=== PATIENT | male | born 1960 | race Caucasian/White ===

== ENCOUNTER 2019-07-19 06:27 | Day surgery (SDC) | payer MEDICAID ==
[~2019-07-19 06:27] MED LIST: Midazolam 1 MG/ML 2 ML SDV ONE; Sodium Chloride 0.9% 10 ML Syringe FLUSH PRN; fentaNYL 100 MCG/2 ML SDV ONE
[2019-07-19] MEDS: Dextrose 5%-0.45% NaCl 1,000 ML IV SCH (07:13)
[2019-07-19] MEDS: fentaNYL 100 MCG/2 ML SDV IV ONE ×2 (07:32→07:33)
[2019-07-19] MEDS: Midazolam 1 MG/ML 2 ML SDV IV ONE ×6 (07:34→07:41)
--- NOTE | 2019-07-19 12:28 | OR ---
DATE: 07/19/2019 PROCEDURES: Total colonoscopy, NBI, and cold snare polypectomy. INSTRUMENT USED: PCF-H190DL Olympus video colonoscope. PREMEDICATIONS: Fentanyl 100 mcg intravenous, Versed 4 mg intravenous, nasal O2 cannula. The procedure was done under pulse oximetry, BP recording, and compliance monitor. INDICATION: The patient with previous multiple colonic tubular adenomas. Surveillance colonoscopic examination is done for detection of any polypoid lesions and removal, endoscopic hemostasis therapy if needed. DESCRIPTION OF PROCEDURE: Initial rectal exam was unremarkable. Rigid anoscopy was normal. The colonoscope was passed with ease. In the proximal rectum, 3 mm sized benign-appearing polyp was noted, NBI views were obtained, photographs were taken, cold snare polypectomy was done, the tissue was retrieved and sent for histopathology. Scattered diverticula were noted in the distal left colon along with deformity. The scope was passed with ease up to the ileocecal area. Photographs were taken of the normal-appearing cecum identified by landmarks of appendiceal orifice and double-bulged ileocecal folds. No bleeding was noted from any of the visualized areas at the commencement of the examination. No stricture. No vascular ectasia. No large isolated ulcerations seen. No evidence of diffuse inflammatory bowel disease in the form of friability, contact bleeding, or ulcerations. Probing the proximal sides of folds and flexures using adequate distention and clearing up the stool material, withdrawal of the scope was made, cecum to rectum time over 6 minutes. The bowel preparation was found to be adequate, [place] scale 2 in all the regions. No bleeding was noted from any of the visualized areas at the completion of examination. IMPRESSION: 1. Diverticulosis. 2. Diminutive rectal polyp. The patient tolerated the procedure well. [facility] /[id number]
== END 2019-07-19 10:00 | disposition home or self-care (01) ==
LOC: DL.ENDO 06:27
PROVIDERS: ATTEND Internal Medicine Gastroenterology
DX: Z12.11 Encounter for screening for malignant neoplasm of colon (principal); K57.30 Diverticulosis of large intestine without perforation or abscess without bleeding; D12.8 Benign neoplasm of rectum; M54.5 Low back pain; I10 Essential (primary) hypertension; Z86.010 Personal history of colon polyps
CPT/HCPCS: 45385; J2250; J3010; J7042

== ENCOUNTER 2020-06-09 13:05 | Emergency (ER) | payer MEDICAID ==
[2020-06-09] MEDS ORDERED: MVI, Adult with Vitamin K 10 ML, Folic Acid 1 MG, Thiamine 100 MG in Lactated Ringers 1... IV ONE ×4 (13:11)
[2020-06-09] MEDS ORDERED: Pantoprazole 40 MG Vial IVPUSH ONE (13:12)
[2020-06-09 13:53] LABS: PTT,PARTIAL THROMBOPLSTIN TIME 29.7 SEC (22.0-34.0)
[2020-06-09 14:01] LABS: CHLORIDE,CL 100 mmol/L (98-107); SODIUM,NA 136 mmol/L (136-145)
[2020-06-09] MEDS ORDERED: Lactulose Soln 10 GM/15 ML 30 ML UD Cup PO ONE (14:01)
[2020-06-09] MEDS ORDERED: Potassium Chloride 10 MEQ Tab.ER PO ONE (14:06)
[2020-06-09] MEDS ORDERED: Ondansetron 4 MG/2 ML SDV IV ONE (14:06)
[2020-06-09] MEDS ORDERED: Potassium Chloride 10 MEQ in Premix Bag 1 BAG IV ONE ×2 (14:09→14:11)
[2020-06-09] MEDS ORDERED: Lidocaine 1% 30 ML SDV INJECT ONE (14:10)
--- NOTE | 2020-06-09 14:40 | CR ---
PROCEDURE INFORMATION: Exam: XR Chest, 2 Views Exam date and time: 06/09/2020 2:15 PM Age: 59 years old Clinical indication: Tachypnea; Additional info: Sirs/sepsis unknwn source, tachycardia, wbc 16,500 TECHNIQUE: Imaging protocol: XR of the chest Views: 2 views. COMPARISON: No relevant prior studies available. FINDINGS: Lungs: There are no acute infiltrates. Pleural space: No pneumothorax or pleural effusion is identified Heart/Mediastinum: The mediastinal contour is normal. There is mild atherosclerotic calcification of the aorta. No cardiomegaly. Bones/joints: . The skeletal structures and soft tissues show no evidence of fracture or other acute processes. There is marginal spondylosis of the distal thoracic spine. IMPRESSION: No acute cardiac or pulmonary findings.
--- NOTE | 2020-06-09 14:51 | EDM.PDOC ---
Scribed by Maura Craft 06/09/20 1323 for Víctor Horvath MD ED HPI GENERAL MEDICAL PROBLEM - General Chief Complaint: Abdominal Pain Stated Complaint: AMBULANCE Time Seen by Provider: 06/09/20 13:07 Source of Information: Reports: Patient, EMS, EMS Notes Reviewed, RN, RN Notes Reviewed History Limitations: Reports: No Limitations - History of Present Illness INITIAL COMMENTS - FREE TEXT/NARRATIVE: Patient arrives by [facility] stating that he has felt weak weak for days. He is making very little urine. He has been yellow for several we eks or maybe months. He has had heavy daily alcohol use for many years. He has been eating some every day, but appetite is poor. Admits to nausea with occasional vomiting some mornings. Denies bloody or coffee ground emesis. Denies bloody, black, or tarry stools. Pt states his urine is orange color. He smokes, but less than a pack a day since not feeling well. Denies cough, shortness of breath, chest pain, abdominal pain, fever or chills. Onset: Gradual Duration: Chronic, Constant, Getting Worse Location: Reports: Abdomen, Generalized Quality: Reports: Other (Denies pain) Severity: Severe Improves with: Reports: None Worsens with: Reports: None Associated Symptoms: Reports: No Other Symptoms - Related Data Allergies Allergy/AdvReac Type Severity Reaction Status Date / Time tomato Allergy Rash Verified 06/09/20 13:19 Home Meds: Home Meds . [No Known Home Meds] 06/09/20 [History] Past Medical History HEENT History: Reports: Impaired Vision Cardiovascular History: Reports: Hypertension Respiratory History: Reports: None Gastrointestinal History: Reports: Chronic Constipation, Diverticulosis, Fatty Liver, Hepatitis (Alcoholic hepatitis, Hx possible Hep. C exposure), Jaundice, Other (See Below) Other Gastrointestinal History: states he has been constipated since fall Genitourinary History: Reports: None Musculoskeletal History: Reports: Back Pain, Chronic Neurological History: Reports: None Psychiatric History: Reports: Addiction (Alcohol) Endocrine/Metabolic History: Reports: Obesity/BMI 30+ Hematologic History: Reports: None Immunologic History: Reports: None Oncologic (Cancer) History: Reports: None Dermatologic History: Reports: None - Infectious Disease History Infectious Disease History: Reports: Measles - Past Surgical History Head Surgeries/Procedures: Reports: None HEENT Surgical History: Reports: None Cardiovascular Surgical History: Reports: None Respiratory Surgical History: Reports: None GI Surgical History: Reports: Colonoscopy Male Surgical History: Reports: None Endocrine Surgical History: Reports: None Neurological Surgical History: Reports: None Musculoskeletal Surgical History: Reports: Shoulder Surgery Oncologic Surgical History: Reports: None Dermatological Surgical History: Reports: Other (See Below) Social & Family History - Family History Family Medical History: Noncontributory - Tobacco Use Smoking Status *Q: Current Every Day Smoker Tobacco Use Within Last Twelve Months: Cigarettes Years of Tobacco use: 40 Packs/Tins Daily: 1 - Caffeine Use Caffeine Use: Reports: Coffee Other Caffeine Use: A LITTLE BIT, ONCE IN A WHILE A CUP OF COFFEE - Alcohol Use Alcohol Use History: Yes Days Per Week of Alcohol Use: 7 (Chronic heavy daily beer drinker for many years.) Alcohol Use Frequency: Daily - Recreational Drug Use Recreational Drug Use: No - Living Situation & Occupation Living situation: Reports: Single, with Family (with son) Occupation: Unemployed ED ROS GENERAL - Review of Systems Review Of Systems: Comprehensive ROS is negative, except as noted in HPI. ED EXAM, GENERAL - Physical Exam Exam: See Below Exam Limited By: No Limitations General Appearance: Alert, No Apparent Distress, Cachetic, Other (Chronicall ill, unkept appearance) Eye Exam: Bilateral Eye: EOMI (Scleral icterus), PERRL Ears: Hearing Grossly Normal Nose: Normal Inspection, Normal Mucosa, No Blood Throat/Mouth: Normal Voice, No Airway Compromise, Other (Dry oral mucosa) Head: Atraumatic, Normocephalic Neck: Normal Inspection, Non-Tender, Full Range of Motion. No: Lymphadenopathy (L), Lymphadenopathy (R) Respiratory/Chest: No Respiratory Distress, Lungs Clear, No Accessory Muscle U se, Chest Non-Tender, Decreased Breath Sounds. No: Crackles, Rales, Rhonchi, Wheezing Cardiovascular: Regular Rate, Rhythm, Tachycardia GI/Abdominal: Normal Bowel Sounds, Soft, Non-Tender, No Distention, Pelvis Stable, Hepatomegaly. No: No Abnormal Bruit, Guarding, Rigid, Rebound (Male) Exam: Deferred Rectal (Males) Exam: Deferred Back Exam: Full Range of Motion. No: Vertebral Tenderness Extremities: Normal Capillary Refill, Pedal Edema (equal B/L non-pitting pedal edema). No: Joint Swelling Neurological: Alert, Oriented, No Motor/Sensory Deficits, Other (Generalized weakness) Psychiatric: Depressed Mood, Flat Affect Skin Exam: Warm, Dry, Jaundice, Rash (Dry flaking, crusty excoriated patches to scalp, neck, upper extremities) Course - Vital Signs Last Recorded V/S: Last Vital Signs Temp 98.4 F 06/09/20 13:15 Pulse 111 H 06/09/20 13:15 Resp 16 06/09/20 13:15 BP 113/56 L 06/09/20 13:15 Pulse Ox 98 06/09/20 13:15 - Orders/Labs/Meds Orders: Active Orders 24 hr Category Date Time Status CULTURE BLOOD [BC] Stat Lab 06/09/20 13:49 Ordered DRUG SCREEN URINE BIORAD [URCHEM] Stat Lab 06/09/20 13:10 Ordered UA RFX PANKAJ AND CULT IF INDIC [URIN] Stat Lab 06/09/20 13:10 Ordered MVI, Adult with Vitamin K [Infuvite Adult] 10 ml Med 06/09/20 13:11 Active Folic Acid 1 mg Thiamine [Vitamin B-1] 100 mg Lactated Ringers [Ringers, Lactated] 1,000 ml IV ONETIME Potassium Chloride [KCl 10 MEQ in Water 100 ML] 10 meq Med 06/09/20 14:09 Active Premix Bag 1 bag IV ONETIME Potassium Chloride [KCl 10 MEQ in Water 100 ML] 10 meq Med 06/09/20 14:11 Active Premix Bag 1 bag IV ONETIME Medication Orders Multivitamins/Minerals 10 ml/Folic Acid 1 mg/ Thiamine HCl 100 mg/ Lactated Ringer's 1,011.2 mls @ 500 mls/hr IV ONETIME ONE Stop: 06/09/20 15:12 Last Admin: 06/09/20 13:31 Dose: 500 mls/hr Documented by: GUILLERMINA Potassium Chloride 10 meq/ (Premix) 100 mls @ 100 mls/hr IV ONETIME ONE Stop: 06/09/20 15:08 Last Admin: 06/09/20 14:20 Dose: 100 mls/hr Documented by: GUILLERMINA Potassium Chloride 10 meq/ (Premix) 100 mls @ 100 mls/hr IV ONETIME ONE Stop: 06/09/20 15:10 Labs: Laboratory Tests 06/09/20 06/09/20 06/09/20 Range/Units 13:23 13:23 13:23 WBC 16.5 H (5.0-10.0) 10^3/uL RBC 2.67 L (4.6-6.2) 10^6/uL Hgb 10.0 L (14.0-18.0) g/dL Hct 27.2 L (40.0-54.0) % MCV 101.9 H (80-100) fL MCH 37.5 H (27.0-34.0) pg MCHC 36.8 H (33.0-35.0) g/dL Plt Count 257 (150-450) 10^3/uL Neut % (Auto) 72.8 (42.2-75.2) % Lymph % (Auto) 10.7 L (20.5-50.1) % [place] % (Auto) 12.2 H (2-8) % Eos % (Auto) 3.6 H (1.0-3.0) % Baso % (Auto) 0.7 (0.0-1.0) % Add Manual Diff Yes Neutrophils % (Manual) 66 (42-75) % Band Neutrophils % 8 % Lymphocytes % (Manual) 13 L (20-50) % Monocytes % (Manual) 6 (2-8) % Eosinophils % (Manual) 4 H (1-3) % Basophils % (Manual) 1 Metamyelocytes % 1 Myelocytes % 1 Target Cells 1+ slight PT 14.6 H (9.0-12.0) SEC INR 1.6 H (0.9-1.2) APTT 29.7 (22.0-34.0) SEC Sodium 136 (136-145) mmol/L Potassium 2.0 L* (3.5-5.1) mmol/L Chloride 100 (98-107) mmol/L Carbon Dioxide 21 (21-32) mmol/L Anion Gap 17.0 H (7-13) mEq/L BUN 4 L (7-18) mg/dL Creatinine 0.68 L (0.70-1.30) mg/dL Est Cr Clr Drug Dosing TNP Estimated GFR (MDRD) > 60 BUN/Creatinine Ratio 5.9 (No establ ref range) Glucose 151 H (74-99) mg/dL Lactic Acid (0.4-2.0) mmol/L Calcium 7.9 L (8.5-10.1) mg/dL Total Bilirubin 21.8 H (0.2-1.0) mg/dL AST 95 H (15-37) U/L ALT 27 (16-63) U/L Alkaline Phosphatase 466 H (46-116) U/L Ammonia (11-32) umol/L Total Protein 7.2 (6.4-8.2) g/dL Albumin 1.6 L (3.4-5.0) g/dL Globulin 5.6 Albumin/Globulin Ratio 0.29 Amylase 39 (25-115) U/L Lipase 274 (73-393) U/L Ethyl Alcohol < 3 (0) mg/dL 06/09/20 06/09/20 Range/Units 13:23 13:23 WBC (5.0-10.0) 10^3/uL RBC (4.6-6.2) 10^6/uL Hgb (14.0-18.0) g/dL Hct (40.0-54.0) % MCV (80-100) fL MCH (27.0-34.0) pg MCHC (33.0-35.0) g/dL Plt Count (150-450) 10^3/uL Neut % (Auto) (42.2-75.2) % Lymph % (Auto) (20.5-50.1) % [place] % (Auto) (2-8) % Eos % (Auto) (1.0-3.0) % Baso % (Auto) (0.0-1.0) % Add Manual Diff Neutrophils % (Manual) (42-75) % Band Neutrophils % % Lymphocytes % (Manual) (20-50) % Monocytes % (Manual) (2-8) % Eosinophils % (Manual) (1-3) % Basophils % (Manual) Metamyelocytes % Myelocytes % Target Cells PT (9.0-12.0) SEC INR (0.9-1.2) APTT (22.0-34.0) SEC Sodium (136-145) mmol/L Potassium (3.5-5.1) mmol/L Chloride (98-107) mmol/L Carbon Dioxide (21-32) mmol/L Anion Gap (7-13) mEq/L BUN (7-18) mg/dL Creatinine (0.70-1.30) mg/dL Est Cr Clr Drug Dosing Estimated GFR (MDRD) BUN/Creatinine Ratio (No establ ref range) Glucose (74-99) mg/dL Lactic Acid 2.6 H* (0.4-2.0) mmol/L Calcium (8.5-10.1) mg/dL Total Bilirubin (0.2-1.0) mg/dL AST (15-37) U/L ALT (16-63) U/L Alkaline Phosphatase (46-116) U/L Ammonia 103 H (11-32) umol/L Total Protein (6.4-8.2) g/dL Albumin (3.4-5.0) g/dL Globulin Albumin/Globulin Ratio Amylase (25-115) U/L Lipase (73-393) U/L Ethyl Alcohol (0) mg/dL Meds: Medications Generic Name Dose Route Start Last Admin Trade Name Freq PRN Reason Stop Dose Admin Multivitamins/Minerals 10 ml/ 1,011.2 mls @ 500 mls/hr 06/09/20 13:11 0 06/09/20 13:31 Folic Acid 1 mg/ Thiamine HCl IV 06/09/20 15:12 500 mls/hr 100 mg/ Lactated Ringer's ONETIME ONE Administration Potassium Chloride 10 meq/ 100 mls @ 100 mls/hr 06/09/20 14:09 06/09/20 14:20 Premix IV 06/09/20 15:08 100 mls/hr ONETIME ONE Administration Potassium Chloride 10 meq/ 100 mls @ 100 mls/hr 06/09/20 14:11 Premix IV 06/09/20 15:10 ONETIME ONE Discontinued Medications Generic Name Dose Route Start Last Admin Trade Name Freq PRN Reason Stop Dose Admin Lactulose 20 gm 06/09/20 14:01 06/09/20 14:07 Cephulac PO 06/09/20 14:02 20 gm ONETIME ONE Administration Lidocaine HCl 30 ml 06/09/20 14:10 06/09/20 14:20 Xylocaine-Mpf 1% INJECT 06/09/20 14:11 30 ml ONETIME ONE Administration Ondansetron HCl 4 mg 06/09/20 14:06 06/09/20 14:20 Zofran IV 06/09/20 14:07 4 mg ONETIME ONE Administration Pantoprazole Sodium 40 mg 06/09/20 13:12 06/09/20 13:31 Protonix Iv IVPUSH 06/09/20 13:13 40 mg ONETIME ONE Administration Potassium Chloride 40 meq 06/09/20 14:06 06/09/20 14:20 Klor-Con 10 PO 06/09/20 14:07 40 meq ONETIME ONE Administration - Radiology Interpretation Free Text/Narrative:: [facility] [place] [facility] Final Radiology Report Call: [phone] assistance Online chat: [email or web address] Name: RIZWAN ACKERMAN Age: 59Years M Date: 06/09/2020 SSN: -- : [id number] Study: CR CHEST 2V Requesting Physician: VÍCTOR HORVATH Images: 2 Addl Studies: Provided Clinical History: SIRS/Sepsis unknwn source, tachycardia, WBC 16,500 Contrast: Contrast Medium: Contrast Amount: Contrast Method: CONFIDENTIALITY STATEMENT This report is intended only for use by the referring physician, and only in accordance with law. If you received this in error, call [phone]. Page 1 of 1 PROCEDURE INFORMATION: Exam: XR Chest, 2 Views Exam date and time: 06/09/2020 2:15 PM Age: 59 years old Clinical indication: Tachypnea; Additional info: Sirs/sepsis unknwn source, tachycardia, wbc 16,500 TECHNIQUE: Imaging protocol: XR of the chest Views: 2 views. COMPARISON: No relevant prior studies available. FINDINGS: Lungs: There are no acute infiltrates. Pleural space: No pneumothorax or pleural effusion is identified Heart/Mediastinum: The mediastinal contour is normal. There is mild atherosclerotic calcification of the aorta. No cardiomegaly. Bones/joints: . The skeletal structures and soft tissues show no evidence of fracture or other acute processes. There is marginal spondylosis of the distal thoracic spine. IMPRESSION: No acute cardiac or pulmonary findings. Thank you for allowing us to participate in the care of your patient. Dictated and Authenticated by: Brooke Jones MD 06/09/2020 2:40 PM Central Time ([place] & [place]) Departure - Departure Time of Disposition: 14:46 Disposition: DC/Tfer to Acute Hospital 02 Condition: Serious Clinical Impression: Hypokalemia, Hyperbilirubinemia, Jaundice, acholuric, Chronic alcohol abuse, Tobacco dependence due to cigarettes Alcoholic cirrhosis of liver Qualifiers: Ascites presence: unspecified Qualified Code(s): K70.30 - Alcoholic cirrhosis of liver without ascites - Discharge Information *PRESCRIPTION DRUG MONITORING PROGRAM REVIEWED*: Not Applicable *COPY OF PRESCRIPTION DRUG MONITORING REPORT IN PATIENT ANTONIO: Not Applicable Forms: ED Department Discharge, Interfacility Transfer EMTALA Sepsis Event Note (ED) - Focused Exam Vital Signs: Vital Signs Temp Pulse Resp BP Pulse Ox 06/09/20 13:15 98.4 F 111 H 16 113/56 L 98 - My Orders Last 24 Hours: My Active Orders 06/09/20 13:10 DRUG SCREEN URINE BIORAD [URCHEM] Stat UA RFX PANKAJ AND CULT IF INDIC [URIN] Stat 06/09/20 13:11 MVI, Adult with Vitamin K [Infuvite Adult] 10 ml Folic Acid 1 mg Thiamine [Vitamin B-1] 100 mg Lactated Ringers [Ringers, Lactated] 1,000 ml IV ONETIME 06/09/20 13:49 CULTURE BLOOD [BC] Stat 06/09/20 14:09 Potassium Chloride [KCl 10 MEQ in Water 100 ML] 10 meq Premix Bag 1 bag IV ONETIME 06/09/20 14:11 Potassium Chloride [KCl 10 MEQ in Water 100 ML] 10 meq Premix Bag 1 bag IV ONETIME - Assessment/Plan Last 24 Hours: My Active Orders 06/09/20 13:10 DRUG SCREEN URINE BIORAD [URCHEM] Stat UA RFX PANKAJ AND CULT IF INDIC [URIN] Stat 06/09/20 13:11 MVI, Adult with Vitamin K [Infuvite Adult] 10 ml Folic Acid 1 mg Thiamine [Vitamin B-1] 100 mg Lactated Ringers [Ringers, Lactated] 1,000 ml IV ONETIME 06/09/20 13:49 CULTURE BLOOD [BC] Stat 06/09/20 14:09 Potassium Chloride [KCl 10 MEQ in Water 100 ML] 10 meq Premix Bag 1 bag IV ONETIME 06/09/20 14:11 Potassium Chloride [KCl 10 MEQ in Water 100 ML] 10 meq Premix Bag 1 bag IV ONETIME I have read and agree with the documentation that has been completed regarding this visit. By signing this record, I attest that the documentation was completed in my physical presence and is an accurate record of the encounter.
== END 2020-06-09 16:20 ==
LOC: DL.ED 13:05
DX: K70.30 Alcoholic cirrhosis of liver without ascites (principal); E87.6 Hypokalemia; D58.0 Hereditary spherocytosis; F10.10 Alcohol abuse, uncomplicated; F17.210 Nicotine dependence, cigarettes, uncomplicated; E80.6 Other disorders of bilirubin metabolism; I10 Essential (primary) hypertension; E66.9 Obesity, unspecified; Z91.018 Allergy to other foods
CPT/HCPCS: 36415; 71046; 80053; 80305; 80307; 81001; 82140; 82150; 83605; 83615; 83690; 83735; 85025; 85610; 85730; 87040; 96365; 96366; 96368; 96375; 99285; A9270; C9113; J2001; J2405; J3411; J3480; J7120; J3490

== ENCOUNTER 2020-08-23 11:58 | Emergency (ER) | payer MEDICAID ==
[2020-08-23] MEDS ORDERED: Sulfamethoxazole/Trimethoprim 800-160 MG Tab PO ONE ×3 (11:59→13:34)
--- NOTE | 2020-08-23 12:35 | EDM.PDOC ---
ED HPI GENERAL MEDICAL PROBLEM - General Chief Complaint: Skin Complaint Stated Complaint: AMBULANCE Time Seen by Provider: 08/23/20 12:15 Source of Information: Reports: Patient, EMS, EMS Notes Reviewed, RN, RN Notes Reviewed History Limitations: Reports: No Limitations - History of Present Illness INITIAL COMMENTS - FREE TEXT/NARRATIVE: Patient presents to the ED via EMS with complaints of worsening rash to face, scalp, ears, and neck. The patient is unable to state when the rash initially began but notes it "comes and goes" for some time; he thinks months. Recently, he has noted the rash has progressively worsened to the point that he presented to the clinic to visit with his primary care provider about it. He states he saw his PCP, Dr. Lim, last week (he is unsure of the date) who prescribed him hydrocortisone cream. He states the rash has worsened in severity since the initiation of the cream. He voices pain and itching to the areas of rash. He states he has experienced a headache, sore throat, and a TMax of 100.6 with the rash. He denies shaking chills, vision changes, cough, sinus pressure/drainage/pain, chest pain, shortness of breath, palpitations, or changes to his bowel/bladder patterns. He denies any changes to his medication but notes he started on "a few water pills and blood pressure meds" a few months ago. He denies and changes to soap, lotions, or detergents. He does attest to smoking 1/2 to 3/4 pack of cigarettes per day. He states he is a former drinker, but has not drank alcohol recently. He denies recreational drug use. - Related Data Allergies Allergy/AdvReac Type Severity Reaction Status Date / Time tomato Allergy Rash Verified 08/23/20 12:08 Home Meds: Home Meds . [No Known Home Meds] 06/09/20 [History] Past Medical History HEENT History: Reports: Impaired Vision Cardiovascular History: Reports: Hypertension Respiratory History: Reports: None Gastrointestinal History: Reports: Chronic Constipation, Diverticulosis, Fatty Liver, Hepatitis, Jaundice Other Gastrointestinal History: states he has been constipated since fall Genitourinary History: Reports: None Musculoskeletal History: Reports: Back Pain, Chronic Neurological History: Reports: None Psychiatric History: Reports: Addiction Endocrine/Metabolic History: Reports: Obesity/BMI 30+ Hematologic History: Reports: None Immunologic History: Reports: Other (See Below) Other Immunologic History: Hepatits Oncologic (Cancer) History: Reports: None Dermatologic History: Reports: None - Infectious Disease History Infectious Disease History: Reports: Measles - Past Surgical History Head Surgeries/Procedures: Reports: None HEENT Surgical History: Reports: None Cardiovascular Surgical History: Reports: None Respiratory Surgical History: Reports: None GI Surgical History: Reports: Colonoscopy Male Surgical History: Reports: None Endocrine Surgical History: Reports: None Neurological Surgical History: Reports: None Musculoskeletal Surgical History: Reports: Shoulder Surgery Oncologic Surgical History: Reports: None Dermatological Surgical History: Reports: Other (See Below) Social & Family History - Family History Family Medical History: No Pertinent Family History - Tobacco Use Tobacco Use Status *Q: Current Every Day Tobacco User Years of Tobacco use: 35 Packs/Tins Daily: 1 - Caffeine Use Caffeine Use: Reports: Coffee Other Caffeine Use: A LITTLE BIT, ONCE IN A WHILE A CUP OF COFFEE - Living Situation & Occupation Living situation: Reports: Single, with Family (with son) Occupation: Unemployed ED ROS GENERAL - Review of Systems Review Of Systems: Comprehensive ROS is negative, except as noted in HPI. ED EXAM, SKIN/RASH Exam: See Below Exam Limited By: No Limitations General Appearance: Alert, WD/WN, No Apparent Distress Eye Exam: Bilateral Eye: EOMI, PERRL, Other (Scleral icterus) Ears: Normal External Exam, Normal Canal, Hearing Grossly Normal, Normal TMs Nose: Normal Inspection, Normal Mucosa, No Blood. No: Nasal Tenderness, Nasal Swelling, Nasal Drainage Throat/Mouth: Normal Lips, Normal Teeth, Normal Gums, Inflammation (Posterior oropharyngeal erythema). No: Normal Oropharynx (Dry mucous membranes) Head: Atraumatic, Normocephalic, Other (Dry, crusty macular erythematous rash to face, scalp, and bilateral ears) Neck: Normal Inspection, Supple, Non-Tender, Full Range of Motion, Other (Dry, crusty macular erythematous rash to posterior neck). No: Lymphadenopathy (L), Lymphadenopathy (R) Respiratory/Chest: No Accessory Muscle Use, Chest Non-Tender, Decreased Breath Sounds Cardiovascular: Normal Peripheral Pulses, Regular Rate, Rhythm, No Edema, No Gallop, No JVD, No Murmur, No Rub Peripheral Pulses: 2+: Radial (L), Radial (R) Back Exam: Normal Inspection, Full Range of Motion. No: CVA Tenderness (L), CVA Tenderness (R) Extremities: Normal Inspection, Normal Range of Motion, Non-Tender, No Pedal Edema, Normal Capillary Refill Neurological: Alert, Oriented, CN II-XII Intact, Normal Cognition, No Motor/Sensory Deficits Psychiatric: Depressed Mood, Flat Affect Skin: Erythema, Excoriations, Increased Warmth, Rash. No: Ecchymosis, Mottled, Pallor, Petechiae Location, Skin: Head, Face, Neck (Posterior neck), Back (Upper, medial back) Characteristics: Macular, Patchy, Erythematous Associated features: Warmth, Tenderness, Inflammation, Crusting, Weeping, Rough Course - Vital Signs Last Recorded V/S: Last Vital Signs Temp 100 F 08/23/20 11:58 Pulse 109 H 08/23/20 11:58 Resp 18 08/23/20 11:58 BP 128/70 08/23/20 11:58 Pulse Ox 98 08/23/20 11:58 - Orders/Labs/Meds Orders: Active Orders 24 hr Category Date Time Status CULTURE BLOOD [BC] Stat Lab 08/23/20 12:29 Received Sulfamethoxazole/Trimethoprim [Septra DS] Med 08/23/20 13:34 Once 1 tab PO ONETIME ONE Sulfamethoxazole/Trimethoprim [Septra DS] Med 08/23/20 13:34 Once 1 tab PO ONETIME ONE Medication Orders Trimethoprim/Sulfamethoxazole (Septra Ds) 1 tab PO ONETIME ONE Stop: 08/23/20 13:35 Trimethoprim/Sulfamethoxazole (Septra Ds) 1 tab PO ONETIME ONE Stop: 08/23/20 13:35 Labs: Laboratory Tests 08/23/20 08/23/20 08/23/20 Range/Units 12:29 12:29 12:29 WBC 12.1 H (5.0-10.0) 10^3/uL RBC 4.01 L (4.6-6.2) 10^6/uL Hgb 14.2 D (14.0-18.0) g/dL Hct 41.3 (40.0-54.0) % MCV 103.0 H (80-100) fL MCH 35.4 H (27.0-34.0) pg MCHC 34.4 (33.0-35.0) g/dL Plt Count 154 D (150-450) 10^3/uL Neut % (Auto) 76.1 H (42.2-75.2) % Lymph % (Auto) 10.1 L (20.5-50.1) % [place] % (Auto) 12.0 H (2-8) % Eos % (Auto) 1.3 (1.0-3.0) % Baso % (Auto) 0.5 (0.0-1.0) % Sodium 132 L (136-145) mmol/L Potassium 3.6 D (3.5-5.1) mmol/L Chloride 95 L (98-107) mmol/L Carbon Dioxide 23 (21-32) mmol/L Anion Gap 17.6 H (7-13) mEq/L BUN 7 (7-18) mg/dL Creatinine 0.78 (0.70-1.30) mg/dL Est Cr Clr Drug Dosing 103.23 mL/min Estimated GFR (MDRD) > 60 BUN/Creatinine Ratio 9.0 (No establ ref range) Glucose 202 H (74-99) mg/dL Lactic Acid 2.0 (0.4-2.0) mmol/L Calcium 8.7 (8.5-10.1) mg/dL Total Bilirubin 3.0 H (0.2-1.0) mg/dL AST 51 H (15-37) U/L ALT 37 (16-63) U/L Alkaline Phosphatase 213 H (46-116) U/L Total Protein 8.4 H (6.4-8.2) g/dL Albumin 3.3 L (3.4-5.0) g/dL Globulin 5.1 Albumin/Globulin Ratio 0.65 Urine Color (YELLOW) Urine Appearance (CLEAR) Urine pH (5.0-9.0) Ur Specific [place] (1.005-1.030) Urine Protein (NEGATIVE) Urine Glucose (UA) (NEGATIVE) Urine Ketones (NEGATIVE) Urine Occult Blood (NEGATIVE) Urine Nitrite (NEGATIVE) Urine Bilirubin (NEGATIVE) Urine Urobilinogen (0.2-1.0) mg/dL Ur Leukocyte Esterase (NEGATIVE) Urine RBC /HPF Urine WBC (0-5/HPF) /HPF Ur Epithelial Cells (NOT SEEN) /HPF Urine Bacteria (0-FEW/HPF) /HPF Urine Mucus (NOT SEEN) /LPF Urine Opiates Screen (NEGATIVE) Ur Oxycodone Screen (NEGATIVE) Urine Methadone Screen (NEGATIVE) Ur Barbiturates Screen (NEGATIVE) U Tricyclic Antidepress (NEGATIVE) Ur Phencyclidine Scrn (NEGATIVE) Ur Amphetamine Screen (NEGATIVE) U Methamphetamines Scrn (NEGATIVE) Urine MDMA Screen (NEGATIVE) U Benzodiazepines Scrn (NEGATIVE) Urine Cocaine Screen (NEGATIVE) U Marijuana (THC) Screen (NEGATIVE) Ethyl Alcohol 20 (0) mg/dL 08/23/20 08/23/20 Range/Units 12:38 12:38 WBC (5.0-10.0) 10^3/uL RBC (4.6-6.2) 10^6/uL Hgb (14.0-18.0) g/dL Hct (40.0-54.0) % MCV (80-100) fL MCH (27.0-34.0) pg MCHC (33.0-35.0) g/dL Plt Count (150-450) 10^3/uL Neut % (Auto) (42.2-75.2) % Lymph % (Auto) (20.5-50.1) % [place] % (Auto) (2-8) % Eos % (Auto) (1.0-3.0) % Baso % (Auto) (0.0-1.0) % Sodium (136-145) mmol/L Potassium (3.5-5.1) mmol/L Chloride (98-107) mmol/L Carbon Dioxide (21-32) mmol/L Anion Gap (7-13) mEq/L BUN (7-18) mg/dL Creatinine (0.70-1.30) mg/dL Est Cr Clr Drug Dosing mL/min Estimated GFR (MDRD) BUN/Creatinine Ratio (No establ ref range) Glucose (74-99) mg/dL Lactic Acid (0.4-2.0) mmol/L Calcium (8.5-10.1) mg/dL Total Bilirubin (0.2-1.0) mg/dL AST (15-37) U/L ALT (16-63) U/L Alkaline Phosphatase (46-116) U/L Total Protein (6.4-8.2) g/dL Albumin (3.4-5.0) g/dL Globulin Albumin/Globulin Ratio Urine Color Yellow (YELLOW) Urine Appearance Clear (CLEAR) Urine pH 5.5 (5.0-9.0) Ur Specific [place] 1.020 (1.005-1.030) Urine Protein Negative (NEGATIVE) Urine Glucose (UA) Negative (NEGATIVE) Urine Ketones Negative (NEGATIVE) Urine Occult Blood Trace-lysed H (NEGATIVE) Urine Nitrite Negative (NEGATIVE) Urine Bilirubin Negative (NEGATIVE) Urine Urobilinogen 1.0 (0.2-1.0) mg/dL Ur Leukocyte Esterase Negative (NEGATIVE) Urine RBC 0-5 /HPF Urine WBC 0-5 (0-5/HPF) /HPF Ur Epithelial Cells Rare (NOT SEEN) /HPF Urine Bacteria Few (0-FEW/HPF) /HPF Urine Mucus Few H (NOT SEEN) /LPF Urine Opiates Screen Negative (NEGATIVE) Ur Oxycodone Screen Negative (NEGATIVE) Urine Methadone Screen Negative (NEGATIVE) Ur Barbiturates Screen Negative (NEGATIVE) U Tricyclic Antidepress Negative (NEGATIVE) Ur Phencyclidine Scrn Negative (NEGATIVE) Ur Amphetamine Screen Negative (NEGATIVE) U Methamphetamines Scrn Negative (NEGATIVE) Urine MDMA Screen Negative (NEGATIVE) U Benzodiazepines Scrn Negative (NEGATIVE) Urine Cocaine Screen Negative (NEGATIVE) U Marijuana (THC) Screen Positive H (NEGATIVE) Ethyl Alcohol (0) mg/dL Meds: Medications Generic Name Dose Route Start Last Admin Trade Name Freq PRN Reason Stop Dose Admin Trimethoprim/Sulfamethoxazole 1 tab 08/23/20 13:34 Septra Ds PO 08/23/20 13:35 ONETIME ONE Trimethoprim/Sulfamethoxazole 1 tab 08/23/20 13:34 Septra Ds PO 08/23/20 13:35 ONETIME ONE Discontinued Medications Generic Name Dose Route Start Last Admin Trade Name Freq PRN Reason Stop Dose Admin Trimethoprim/Sulfamethoxazole Confirm 08/23/20 13:23 Septra Ds Administered 08/23/20 13:24 Dose 2 tab .ROUTE .STK-MED ONE - Re-Assessments/Exams Free Text/Narrative Re-Assessment/Exam: 08/23/20 Discussed manifestation of psoriasis with patient, including plaques and flaking. Given slight elevation in temperature and slight leukocytosis with left shift, will treat for cellulitis superimposed on psoriasis. Instructed the patient to continue on hydrocortisone cream as previously prescribed tonight, but will attempt a higher-potency cream Fluocinonide to his ears and scalp; patient instructed not to use this cream on his face. Will treat cellulitis empirically with Bactrim DS. Patient instructed to refrain from alcohol and to drink plenty of water to stay hydrated. Instructed patient to follow up with PCP in seven days or with any fever, shaking chills, or worsening rash. Departure - Departure Time of Disposition: 13:28 Disposition: Home, Self-Care 01 Condition: Good Clinical Impression: Psoriasis of scalp, Psoriasis Cellulitis Qualifiers: Site of cellulitis: head Qualified Code(s): L03.811 - Cellulitis of head [any part, except face] - Discharge Information *PRESCRIPTION DRUG MONITORING PROGRAM REVIEWED*: Not Applicable *COPY OF PRESCRIPTION DRUG MONITORING REPORT IN PATIENT ANTONIO: Not Applicable Instructions: Psoriasis, Cellulitis, Adult, [id number] Forms: ED Department Discharge Additional Instructions: Rx: Fluocinonide 0.1% cream Rx: Bactrim DS Continue to apply previously prescribed hydrocortisone cream to affected areas until you can fill the Fluocinonide cream at your pharmacy. Follow up with your primary care provider in 7 days, or should you experience fever, shaking chills, or worsening rash. Drink a lot of water to stay hydrated and help your skin heal. Refrain from drinking alcohol, as alcohol may worsen the severity of your rash. Sepsis Event Note (ED) - Evaluation Sepsis Screening Result: No Definite Risk - Focused Exam Vital Signs: Vital Signs Temp Pulse Resp BP Pulse Ox 08/23/20 11:58 100 F 109 H 18 128/70 98 - My Orders Last 24 Hours: My Active Orders 08/23/20 12:29 CULTURE BLOOD [BC] Stat 08/23/20 13:34 Sulfamethoxazole/Trimethoprim [Septra DS] 1 tab PO ONETIME ONE Sulfamethoxazole/Trimethoprim [Septra DS] 1 tab PO ONETIME ONE - Assessment/Plan Last 24 Hours: My Active Orders 08/23/20 12:29 CULTURE BLOOD [BC] Stat 08/23/20 13:34 Sulfamethoxazole/Trimethoprim [Septra DS] 1 tab PO ONETIME ONE Sulfamethoxazole/Trimethoprim [Septra DS] 1 tab PO ONETIME ONE
[2020-08-23 12:57] LABS: ANION GAP 17.6 mEq/L (7-13); CHLORIDE,CL 95 mmol/L (98-107); SODIUM,NA 132 mmol/L (136-145)
[2020-08-23] MEDS ORDERED: Sulfamethoxazole/Trimethoprim 800-160 MG Tab ONE (13:23)
== END 2020-08-23 13:48 | disposition home or self-care (01) ==
LOC: DL.ED 11:58
DX: L40.9 Psoriasis, unspecified (principal); L03.811 Cellulitis of head [any part, except face]; I10 Essential (primary) hypertension; E66.9 Obesity, unspecified; Z68.25 Body mass index [BMI] 25.0-25.9, adult; Z91.018 Allergy to other foods; F17.210 Nicotine dependence, cigarettes, uncomplicated
CPT/HCPCS: 36415; 80053; 80305; 80307; 81001; 83605; 85025; 87040; 99283; A9270

== ENCOUNTER 2020-08-31 18:55 | Emergency (ER) | payer MEDICAID ==
--- NOTE | 2020-08-31 19:20 | EDM.PDOC ---
ED HPI GENERAL MEDICAL PROBLEM - General Chief Complaint: Upper Extremity Injury/Pain Stated Complaint: AMBULANCE Time Seen by Provider: 08/31/20 19:20 Source of Information: Reports: Patient, RN, RN Notes Reviewed History Limitations: Reports: No Limitations, Intoxication - History of Present Illness INITIAL COMMENTS - FREE TEXT/NARRATIVE: Patient presents to ER per [facility] with complaint of right arm pain/weakness. Patient states he had a fall down about 5 steps last evening, had some pain at that time. States today the pain has worsened, feels the weakness is worse, states he cannot do anything with the right arm. Patient is moving the right arm about appropriately, decreased strength in squeeze to the right hand. Complains of the pain up into the shoulder down to the hand. States he has had some numbness in the right hand that he is been doctoring for and is following up with. Patient also complains of pain in the right lateral rib area, as well as the left hip. Patient admits to drinking alcohol today, as well as yesterday. Patient denies hitting his head or getting knocked out with the fall. Onset: Gradual Duration: Constant Location: Reports: Upper Extremity, Right Quality: Reports: Ache Severity: Mild Improves with: Reports: None Worsens with: Reports: None Associated Symptoms: Reports: No Other Symptoms Right Arm Pain Score (Numeric/FACES): 7 Right Shoulder Pain Score (Numeric/FACES): 5 Right Back Pain Score (Numeric/FACES): 5 - Related Data Allergies Allergy/AdvReac Type Severity Reaction Status Date / Time tomato Allergy Rash Verified 08/31/20 19:13 Home Meds: Home Meds . [No Known Home Meds] 06/09/20 [History] Past Medical History HEENT History: Reports: Impaired Vision Cardiovascular History: Reports: Hypertension Respiratory History: Reports: None Gastrointestinal History: Reports: Chronic Constipation, Diverticulosis, Fatty Liver, Hepatitis, Jaundice, Other (See Below) Other Gastrointestinal History: states he has been constipated since fall Genitourinary History: Reports: None Musculoskeletal History: Reports: Back Pain, Chronic Neurological History: Reports: None Psychiatric History: Reports: Addiction Endocrine/Metabolic History: Reports: Obesity/BMI 30+ Hematologic History: Reports: None Immunologic History: Reports: None Other Immunologic History: Hepatits Oncologic (Cancer) History: Reports: None Dermatologic History: Reports: None - Infectious Disease History Infectious Disease History: Reports: Measles - Past Surgical History Head Surgeries/Procedures: Reports: None HEENT Surgical History: Reports: None Cardiovascular Surgical History: Reports: None Respiratory Surgical History: Reports: None GI Surgical History: Reports: Colonoscopy Male Surgical History: Reports: None Endocrine Surgical History: Reports: None Neurological Surgical History: Reports: None Musculoskeletal Surgical History: Reports: Shoulder Surgery Oncologic Surgical History: Reports: None Dermatological Surgical History: Reports: Other (See Below) Social & Family History - Family History Family Medical History: No Pertinent Family History - Tobacco Use Tobacco Use Status *Q: Current Every Day Tobacco User Years of Tobacco use: 45 Packs/Tins Daily: 1 - Caffeine Use Caffeine Use: Reports: Coffee Other Caffeine Use: A LITTLE BIT, ONCE IN A WHILE A CUP OF COFFEE - Alcohol Use Date of Last Drink: 08/31/20 - Recreational Drug Use Recreational Drug Use: Yes Drug Use in Last 12 Months: No - Living Situation & Occupation Living situation: Reports: Single, with Family (with son) Occupation: Unemployed Review of Systems - Review of Systems Review Of Systems: Comprehensive ROS is negative, except as noted in HPI. ED EXAM, GENERAL - Physical Exam Exam: See Below Exam Limited By: Intoxication General Appearance: Alert, WD/WN, No Apparent Distress Eye Exam: Bilateral Eye: EOMI, Normal Inspection Ears: Normal External Exam, Hearing Grossly Normal Nose: Normal Inspection Throat/Mouth: Normal Inspection, Normal Voice, No Airway Compromise Head: Atraumatic, Normocephalic Neck: Normal Inspection, Supple, Non-Tender, Full Range of Motion Respiratory/Chest: No Respiratory Distress, Decreased Breath Sounds, Crackles (bases bilaterally) Cardiovascular: Normal Peripheral Pulses, Regular Rate, Rhythm, No Edema, No Gallop, No JVD, No Murmur, No Rub Peripheral Pulses: 2+: Radial (L), Radial (R) GI/Abdominal: Normal Bowel Sounds, Soft, Non-Tender, No Organomegaly, No Distention, No Abnormal Bruit, No Mass, Pelvis Stable (Male) Exam: Deferred Rectal (Males) Exam: Deferred Back Exam: Normal Inspection, Full Range of Motion, Other (states chronic back pain) Extremities: No Pedal Edema, Arm Pain (right), Limited Range of Motion (decreased, but ROM still intact), Redness (right arm has abrasions and healing open areas to forearm and upper arm) Neurological: Alert, Oriented, CN II-XII Intact, Normal Reflexes, No Motor/Sensory Deficits, Other (intoxication) Psychiatric: Normal Affect, Normal Mood Skin Exam: Warm, Dry, Normal Color, No Rash, Ecchymosis (left shoulder), Erythema (and abrasion to the right forearm, hand, and upper arm.) Lymphatic: No Adenopathy ED TRAUMA EXTREMITY PROCEDURES - Splinting Right Upper Extremity Splint Site: Right arm Pre-Procedure NV Status: Normal Post-Procedure NV Status: Normal Splint Material: Plaster Splint Design: Volar Applied & Form Fitted By: Provider Provider Post-Splint Application NV Check: NV Status Normal, Good Position Complications: No Course - Vital Signs Last Recorded V/S: Last Vital Signs Temp 98.3 F 08/31/20 19:02 Pulse 111 H 08/31/20 19:02 Resp 20 08/31/20 19:02 BP 117/61 08/31/20 19:02 Pulse Ox 97 08/31/20 19:02 - Orders/Labs/Meds Labs: Laboratory Tests 08/31/20 08/31/20 Range/Units 19:46 19:46 WBC 10.8 H (5.0-10.0) 10^3/uL RBC 3.54 L (4.6-6.2) 10^6/uL Hgb 12.5 L D (14.0-18.0) g/dL Hct 35.5 L (40.0-54.0) % MCV 100.3 H (80-100) fL MCH 35.3 H (27.0-34.0) pg MCHC 35.2 H (33.0-35.0) g/dL Plt Count 185 (150-450) 10^3/uL Neut % (Auto) 50.6 (42.2-75.2) % Lymph % (Auto) 30.8 (20.5-50.1) % Major % (Auto) 15.5 H (2-8) % Eos % (Auto) 1.8 (1.0-3.0) % Baso % (Auto) 1.3 H (0.0-1.0) % Sodium 133 L (136-145) mmol/L Potassium 3.1 L (3.5-5.1) mmol/L Chloride 97 L (98-107) mmol/L Carbon Dioxide 22 (21-32) mmol/L Anion Gap 17.1 H (7-13) mEq/L BUN 6 L (7-18) mg/dL Creatinine 0.89 (0.70-1.30) mg/dL Est Cr Clr Drug Dosing 90.47 mL/min Estimated GFR (MDRD) > 60 BUN/Creatinine Ratio 6.7 (No establ ref range) Glucose 123 H (74-99) mg/dL Calcium 8.2 L (8.5-10.1) mg/dL Total Bilirubin 1.7 H (0.2-1.0) mg/dL AST 114 H (15-37) U/L ALT 73 H (16-63) U/L Alkaline Phosphatase 254 H (46-116) U/L Total Protein 7.8 (6.4-8.2) g/dL Albumin 3.1 L (3.4-5.0) g/dL Globulin 4.7 Albumin/Globulin Ratio 0.66 Ethyl Alcohol 327 (0) mg/dL Meds: Medications Discontinued Medications Generic Name Dose Route Start Last Admin Trade Name Freq PRN Reason Stop Dose Admin Potassium Chloride 40 meq 08/31/20 21:41 08/31/20 21:47 Klor-Con 10 PO 08/31/20 21:42 40 meq ONETIME ONE Administration Tramadol HCl 50 mg 08/31/20 23:32 08/31/20 23:43 Ultram PO 08/31/20 23:33 50 mg ONETIME ONE Administration - Radiology Interpretation Free Text/Narrative:: Xray left hip with pelvis: PROCEDURE INFORMATION: Exam: XR Left Hip with Pelvis when Performed Exam date and time: 08/31/2020 9:07 PM Age: 59 years old Clinical indication: Other: Fell last night, left hip pain; Additional info: Fall, pain/wkns to R arm, pain right ribs, left hi TECHNIQUE: Imaging protocol: XR Left hip with pelvis when performed. Views: 2 or 3 views. COMPARISON: No relevant prior studies available. FINDINGS: Bones/joints: There is no evidence of acute fracture. There is no evidence of joint malalignment or dislocation. There is mild narrowing of the weight-bearing aspect of the hip joints with some element of subchondral sclerosis and marginal osteophyte formation. Soft tissues: No acute soft tissue abnormalities are identified. Vasculature: There are numerous benign phleboliths in the pelvis. IMPRESSION: No acute findings. Thank you for allowing us to participate in the care of your patient. Dictated and Authenticated by: Samson Cornell MD 08/31/2020 9:39 PM Central Time ([place] & [place]) xray right hand: PROCEDURE INFORMATION: Exam: XR Right Hand Exam date and time: 08/31/2020 9:19 PM Age: 59 years old Clinical indication: Other: Fall/pain; Additional info: Fall, pain/wkns to R arm, pain right ribs, left hi TECHNIQUE: Imaging protocol: XR Right hand. Views: 1 or 2 views. COMPARISON: No relevant prior studies available. FINDINGS: Bones/joints: Moderate degenerative change radiocarpal joint. Moderate degenerative change multiple interphalangeal joints. Mild degenerative change multiple metacarpophalangeal joints. joint.There is no evidence of acute fracture. There is no evidence of joint malalignment or dislocation. Soft tissues: No acute soft tissue abnormalities are identified. IMPRESSION: 1. No acute findings in the hand. 2. Please refer to forearm report Thank you for allowing us to participate in the care of your patient. Dictated and Authenticated by: Samson Cornell MD 08/31/2020 9:49 PM Central Time ([place] [employer] [place]) xray right forearm: PROCEDURE INFORMATION: Exam: XR Right Forearm Exam date and time: 08/31/2020 9:20 PM Age: 59 years old Clinical indication: Other: Fell last night--no pain on elbow (has elbow surgery 30 years ago); Prior surgery; Surgery date: 6+ months; Additional info: Fall, pain/wkns to R arm, pain right ribs, left hi TECHNIQUE: Imaging protocol: XR Right forearm. Views: 2 views. COMPARISON: No relevant prior studies available. FINDINGS: Bones/joints: There is a transverse fracture of the distal ulnar the level of the distal portion of the middle 3rd. There is 50% shaft width lateral displacement of middle anterior displacement. Minimal medial angulation. No definite radial fracture is seen. Minor cortical irregularity involving the anterolateral radial head/neck. Soft tissues: Mild soft tissue swelling at the level of fracture. Other findings: Extensive hypertrophic changes noted about the lateral aspect of the elbow. With multiple areas of heterotopic bone formation, these appear well corticated. IMPRESSION: 1. Ulnar shaft fracture as described. 2. Questionable abnormalities about the radial head neck likely reflect superimposed areas of heterotopic bone. Nondisplaced radial head/neck fracture cannot entirely be ruled out. Correlate with point tenderness. Consider follow-up films in 7-14 days of symptoms persist Dictated and Authenticated by: Samson Cornell MD 08/31/2020 9:46 PM Central Time ([place]) xray right shoulder: PROCEDURE INFORMATION: Exam: XR Right Shoulder Exam date and time: 08/31/2020 9:15 PM Age: 59 years old Clinical indication: Other: Fall/pain; Additional info: Fall, pain/wkns to R arm, pain right ribs, left hi TECHNIQUE: Imaging protocol: XR Right shoulder. Views: 2 or more views. COMPARISON: No relevant prior studies available. FINDINGS: Bones/joints: There are moderate degenerative changes of the acromioclavicular joint. Moderate spur formation undersurface of the glenoid. Mild to moderate degenerative change glenohumeral joint. Hypertrophic change greater tuberosity. Vague lucency projects beneath the coracoid process and the scapular spine. This could reflect a vascular groove. Nondisplaced scapular fracture requires consideration. Consider CT and/or followup films Soft tissues: No acute soft tissue abnormalities are identified. IMPRESSION: 1. Vague lucency projects below the scapular spine and the coracoid process, nondisplaced scapular fracture acquires consideration. This is not definite. 2. Other degenerative changes as described. Thank you for allowing us to participate in the care of your patient. Dictated and Authenticated by: Samson Cornell MD xray ribs right with chest: PROCEDURE INFORMATION: Exam: XR Right Ribs with PA Chest, 3 Views Exam date and time: 08/31/2020 9:12 PM Age: 59 years old Clinical indication: Other: Right rib pain/fall; Additional info: Fall, pain/wkns to R arm, pain right ribs, left hi TECHNIQUE: Imaging protocol: XR Right ribs 3 views with PA chest. COMPARISON: No relevant prior studies available. FINDINGS: Lungs: Unremarkable. No consolidation. Pleural space: Unremarkable. No pleural effusion. No pneumothorax. Heart/Mediastinum: Unremarkable. No cardiomegaly. Bones/joints: Unremarkable. No rib fracture seen. IMPRESSION: No acute findings. Thank you for allowing us to participate in the care of your patient. Dictated and Authenticated by: Samson Cornell MD 08/31/2020 9:41 PM Central Time ([place] & [place]) See rad report - Re-Assessments/Exams Free Text/Narrative Re-Assessment/Exam: 09/01/20 05:53 Discussed patient case with Dr. Oliveira who states the patient should be splinted and he should be seen in the [facility] on Thursday for possible surgery. 09/01/20 05:54 Departure - Departure Time of Disposition: 23:33 Disposition: Home, Self-Care 01 Condition: Fair Clinical Impression: Fracture of ulna Qualifiers: Encounter type: initial encounter Ulna location: distal Fracture type: closed Fracture morphology: unspecified fracture morphology Laterality: right Qualified Code(s): S52.601A - Unspecified fracture of lower end of right ulna, initial encounter for closed fracture Scapular fracture Qualifiers: Encounter type: initial encounter Scapula location: unspecified part of scapula Fracture type: closed Laterality: right Qualified Code(s): S42.101A - Fracture of unspecified part of scapula, right shoulder, initial encounter for closed fracture - Discharge Information *PRESCRIPTION DRUG MONITORING PROGRAM REVIEWED*: No *COPY OF PRESCRIPTION DRUG MONITORING REPORT IN PATIENT ANTONIO: No Instructions: Ulnar Fracture With Rehab-SportsMed, Cast or Splint Care, Adult, [id number], Shoulder Pain, [id number] Forms: ED Department Discharge Additional Instructions: Keep splint clean and dry Do not get splint wet in the shower [facility], go to the orthopedic clinic Thursday If you cannot make the appointment on Thursday please call [facility] at [phone] Rx: Tramadol, take 1 every 6 hours as directed for pain Refrain from drinking alcohol Sepsis Event Note (ED) - Evaluation Sepsis Screening Result: No Definite Risk - Focused Exam Vital Signs: Vital Signs Temp Pulse Resp BP Pulse Ox 08/31/20 19:02 98.3 F 111 H 20 117/61 97
[2020-08-31 20:12] LABS: ANION GAP 17.1 mEq/L (7-13); CHLORIDE,CL 97 mmol/L (98-107); SODIUM,NA 133 mmol/L (136-145)
--- NOTE | 2020-08-31 21:39 | CR ---
PROCEDURE INFORMATION: Exam: XR Left Hip with Pelvis when Performed Exam date and time: 08/31/2020 9:07 PM Age: 59 years old Clinical indication: Other: Fell last night, left hip pain; Additional info: Fall, pain/wkns to R arm, pain right ribs, left hi TECHNIQUE: Imaging protocol: XR Left hip with pelvis when performed. Views: 2 or 3 views. COMPARISON: No relevant prior studies available. FINDINGS: Bones/joints: There is no evidence of acute fracture. There is no evidence of joint malalignment or dislocation. There is mild narrowing of the weight-bearing aspect of the hip joints with some element of subchondral sclerosis and marginal osteophyte formation. Soft tissues: No acute soft tissue abnormalities are identified. Vasculature: There are numerous benign phleboliths in the pelvis. IMPRESSION: No acute findings.
[2020-08-31] MEDS ORDERED: Potassium Chloride 10 MEQ Tab.ER PO ONE (21:41)
--- NOTE | 2020-08-31 21:41 | CR ---
PROCEDURE INFORMATION: Exam: XR Right Ribs with PA Chest, 3 Views Exam date and time: 08/31/2020 9:12 PM Age: 59 years old Clinical indication: Other: Right rib pain/fall; Additional info: Fall, pain/wkns to R arm, pain right ribs, left hi TECHNIQUE: Imaging protocol: XR Right ribs 3 views with PA chest. COMPARISON: No relevant prior studies available. FINDINGS: Lungs: Unremarkable. No consolidation. Pleural space: Unremarkable. No pleural effusion. No pneumothorax. Heart/Mediastinum: Unremarkable. No cardiomegaly. Bones/joints: Unremarkable. No rib fracture seen. IMPRESSION: No acute findings.
--- NOTE | 2020-08-31 21:46 | CR ---
PROCEDURE INFORMATION: Exam: XR Right Forearm Exam date and time: 08/31/2020 9:20 PM Age: 59 years old Clinical indication: Other: Fell last night--no pain on elbow (has elbow surgery 30 years ago); Prior surgery; Surgery date: 6+ months; Additional info: Fall, pain/wkns to R arm, pain right ribs, left hi TECHNIQUE: Imaging protocol: XR Right forearm. Views: 2 views. COMPARISON: No relevant prior studies available. FINDINGS: Bones/joints: There is a transverse fracture of the distal ulnar the level of the distal portion of the middle 3rd. There is 50% shaft width lateral displacement of middle anterior displacement. Minimal medial angulation. No definite radial fracture is seen. Minor cortical irregularity involving the anterolateral radial head/neck. Soft tissues: Mild soft tissue swelling at the level of fracture. Other findings: Extensive hypertrophic changes noted about the lateral aspect of the elbow. With multiple areas of heterotopic bone formation, these appear well corticated. IMPRESSION: 1. Ulnar shaft fracture as described. 2. Questionable abnormalities about the radial head neck likely reflect superimposed areas of heterotopic bone. Nondisplaced radial head/neck fracture cannot entirely be ruled out. Correlate with point tenderness. Consider follow-up films in 7-14 days of symptoms persist
--- NOTE | 2020-08-31 21:48 | CR ---
PROCEDURE INFORMATION: Exam: XR Right Shoulder Exam date and time: 08/31/2020 9:15 PM Age: 59 years old Clinical indication: Other: Fall/pain; Additional info: Fall, pain/wkns to R arm, pain right ribs, left hi TECHNIQUE: Imaging protocol: XR Right shoulder. Views: 2 or more views. COMPARISON: No relevant prior studies available. FINDINGS: Bones/joints: There are moderate degenerative changes of the acromioclavicular joint. Moderate spur formation undersurface of the glenoid. Mild to moderate degenerative change glenohumeral joint. Hypertrophic change greater tuberosity. Vague lucency projects beneath the coracoid process and the scapular spine. This could reflect a vascular groove. Nondisplaced scapular fracture requires consideration. Consider CT and/or follow-up films Soft tissues: No acute soft tissue abnormalities are identified. IMPRESSION: 1. Vague lucency projects below the scapular spine and the coracoid process, nondisplaced scapular fracture acquires consideration. This is not definite. 2. Other degenerative changes as described.
--- NOTE | 2020-08-31 21:50 | CR ---
PROCEDURE INFORMATION: Exam: XR Right Hand Exam date and time: 08/31/2020 9:19 PM Age: 59 years old Clinical indication: Other: Fall/pain; Additional info: Fall, pain/wkns to R arm, pain right ribs, left hi TECHNIQUE: Imaging protocol: XR Right hand. Views: 1 or 2 views. COMPARISON: No relevant prior studies available. FINDINGS: Bones/joints: Moderate degenerative change radiocarpal joint. Moderate degenerative change multiple interphalangeal joints. Mild degenerative change multiple metacarpophalangeal joints. joint.There is no evidence of acute fracture. There is no evidence of joint malalignment or dislocation. Soft tissues: No acute soft tissue abnormalities are identified. IMPRESSION: 1. No acute findings in the hand. 2. Please refer to forearm report
[2020-08-31] MEDS ORDERED: traMADol 50 MG Tab PO ONE (23:32)
== END 2020-09-01 00:02 | disposition home or self-care (01) ==
LOC: DL.ED 18:55
DX: S52.601A Unspecified fracture of lower end of right ulna, initial encounter for closed fracture (principal); S42.101A Fracture of unspecified part of scapula, right shoulder, initial encounter for closed fracture; S40.012A Contusion of left shoulder, initial encounter; S50.811A Abrasion of right forearm, initial encounter; I10 Essential (primary) hypertension; E66.9 Obesity, unspecified; F17.210 Nicotine dependence, cigarettes, uncomplicated; F10.129 Alcohol abuse with intoxication, unspecified; Y90.8 Blood alcohol level of 240 mg/100 ml or more; Z91.018 Allergy to other foods; Z68.25 Body mass index [BMI] 25.0-25.9, adult; W10.9XXA Fall (on) (from) unspecified stairs and steps, initial encounter
CPT/HCPCS: 29125; 36415; 71101; 73030; 73090; 73120; 73502; 80053; 80307; 85025; 99283; A9270

== ENCOUNTER 2020-11-24 12:34 | Emergency (ER) | payer MEDICAID ==
[2020-11-24 13:42] LABS: ANION GAP 15.1 mEq/L (7-13); CHLORIDE,CL 92 mmol/L (98-107); SODIUM,NA 128 mmol/L (136-145)
[2020-11-24] MEDS ORDERED: Sodium Chloride 0.9% 1,000 ML IV ONE (14:13)
[2020-11-24] MEDS ORDERED: Potassium Chloride 20 MEQ in Premix Bag 1 BAG IV ONE (14:14)
[2020-11-24] MEDS ORDERED: Lidocaine 1% 30 ML SDV INJECT ONE (14:25)
--- NOTE | 2020-11-24 14:25 | EDM.PDOC ---
Scribed by Maura Craft 11/24/20 [id number] for Leonarda Sharp NP ED HPI GENERAL MEDICAL PROBLEM - General Stated Complaint: AMBULANCE Time Seen by Provider: 11/24/20 12:48 Source of Information: Reports: Patient History Limitations: Reports: No Limitations - History of Present Illness INITIAL COMMENTS - FREE TEXT/NARRATIVE: 60 y/o M c/o Weakness for several days. Pt also reports that his skin has been yellow for several weeks. Hx of alcoholism and does not know the last time he drank alcohol. Pt states he has no energy to get around his house and that he has been itching all over his body for several days. Denies martinez, cp, sob, abd pn, nausea, vomiting, diarrhea. Onset: Gradual Duration: Day(s): Location: Reports: Generalized Severity: Moderate Improves with: Reports: None Worsens with: Reports: None - Related Data Allergies Allergy/AdvReac Type Severity Reaction Status Date / Time tomato Allergy Rash Verified 11/24/20 12:47 Home Meds: Home Meds . [No Known Home Meds] 06/09/20 [History] Past Medical History HEENT History: Reports: Impaired Vision Cardiovascular History: Reports: Hypertension Respiratory History: Reports: None Gastrointestinal History: Reports: Chronic Constipation, Diverticulosis, Fatty Liver, Hepatitis, Jaundice, Other (See Below) Other Gastrointestinal History: states he has been constipated since fall Genitourinary History: Reports: None Musculoskeletal History: Reports: Back Pain, Chronic Neurological History: Reports: None Psychiatric History: Reports: Addiction Endocrine/Metabolic History: Reports: Obesity/BMI 30+ Hematologic History: Reports: None Immunologic History: Reports: None Other Immunologic History: Hepatits Oncologic (Cancer) History: Reports: None Dermatologic History: Reports: None - Infectious Disease History Infectious Disease History: Reports: Measles - Past Surgical History Head Surgeries/Procedures: Reports: None HEENT Surgical History: Reports: None Cardiovascular Surgical History: Reports: None Respiratory Surgical History: Reports: None GI Surgical History: Reports: Colonoscopy Male Surgical History: Reports: None Endocrine Surgical History: Reports: None Neurological Surgical History: Reports: None Musculoskeletal Surgical History: Reports: Shoulder Surgery Oncologic Surgical History: Reports: None Dermatological Surgical History: Reports: Other (See Below) Social & Family History - Family History Family Medical History: No Pertinent Family History - Caffeine Use Caffeine Use: Reports: Coffee Other Caffeine Use: A LITTLE BIT, ONCE IN A WHILE A CUP OF COFFEE - Living Situation & Occupation Living situation: Reports: Single, with Family (with son) Occupation: Unemployed ED ROS GENERAL - Review of Systems Review Of Systems: Comprehensive ROS is negative, except as noted in HPI. ED EXAM, NEURO - Physical Exam Exam: See Below Exam Limited By: No Limitations General Appearance: Alert Eye Exam: Bilateral Eye: PERRL, Other (icterus) Ears: Normal External Exam, Normal Canal, Hearing Grossly Normal, Normal TMs Nose: Normal Inspection, Normal Mucosa, No Blood Throat/Mouth: Normal Inspection (peeling dried skin, with no purulent sores or discharge.), Normal Lips, Normal Teeth, Normal Gums, Normal Oropharynx, Normal Voice, No Airway Compromise Neck: Supple, Non-Tender, Other (erythematous patchy rash to the posterior neck) Cardiovascular: Normal Peripheral Pulses GI/Abdominal: Normal Bowel Sounds, Soft, Non-Tender, No Distention, No Abnormal Bruit, Other (palpable non tender liver) (Male) Exam: Deferred Rectal (Males) Exam: Deferred Neurological: Alert, Oriented x 3 Back Exam: Full Range of Motion Extremities: Normal Range of Motion, Non-Tender, No Pedal Edema, Other (scaling dired skin to bilaeral legs.) Skin Exam: Warm, Dry, Intact, Normal Color, No Rash Course - Vital Signs Last Recorded V/S: Last Vital Signs Temp 98.0 F 11/24/20 12:47 Pulse 97 11/24/20 12:47 Resp 18 11/24/20 12:47 BP 99/47 L 11/24/20 12:47 Pulse Ox 97 11/24/20 12:47 - Orders/Labs/Meds Orders: Active Orders 24 hr Category Date Time Status EKG Documentation Completion [RC] STAT Care 11/24/20 12:57 Active CBC WITH AUTO DIFF [HEME] Stat Lab 11/24/20 13:15 Results CULTURE BLOOD [BC] Stat Lab 11/24/20 13:15 Received CULTURE BLOOD [BC] Stat Lab 11/24/20 13:47 Received DRUG SCREEN URINE BIORAD [URCHEM] Stat Lab 11/24/20 12:59 Ordered MANUAL DIFFERENTIAL QA/NC [HEME] Stat Lab 11/24/20 13:15 Results REFLEX LACTIC ACID YES OR NO [CHEM] Routine Lab 11/24/20 14:13 Received UA W/PANKAJ RFLX IF INDICATED [URIN] Stat Lab 11/24/20 12:59 Ordered Piperacillin/Tazobactam [Zosyn] 3.375 gm Med 11/24/20 14:49 Active Sodium Chloride 0.9% [Normal Saline] 100 ml IV ONETIME Potassium Chloride [KCL in Water 20 MEQ/100 ML] 20 meq Med 11/24/20 14:14 Active Premix Bag 1 bag IV ONETIME Sodium Chloride 0.9% [Normal Saline] 1,000 ml Med 11/24/20 14:13 Active IV .BOLUS Blood Culture x2 Reflex Set [OM.PC] Stat Oth 11/24/20 12:58 Ordered Medication Orders Sodium Chloride (Normal Saline) 1,000 mls @ 200 mls/hr IV .BOLUS ONE Stop: 11/24/20 19:12 Last Admin: 11/24/20 14:32 Dose: 200 mls/hr Documented by: EBEN Potassium Chloride 20 meq/ (Premix) 100 mls @ 50 mls/hr IV ONETIME ONE Stop: 11/24/20 16:13 Last Admin: 11/24/20 14:32 Dose: 50 mls/hr Documented by: EBEN Piperacillin Sod/Tazobactam (Sod 3.375 gm/ Sodium Chloride) 100 mls @ 200 mls/hr IV ONETIME ONE Stop: 11/24/20 15:18 Labs: Laboratory Tests 11/24/20 11/24/20 11/24/20 Range/Units 13:08 13:15 13:15 WBC 20.2 H (5.0-10.0) 10^3/uL RBC 1.86 L (4.6-6.2) 10^6/uL Hgb 7.1 L D (14.0-18.0) g/dL Hct 19.6 L* (40.0-54.0) % MCV 105.4 H D (80-100) fL MCH 38.2 H (27.0-34.0) pg MCHC 36.2 H (33.0-35.0) g/dL Plt Count 240 (150-450) 10^3/uL Neut % (Auto) 78.4 H (42.2-75.2) % Lymph % (Auto) 7.5 L (20.5-50.1) % [place] % (Auto) 9.6 H (2-8) % Eos % (Auto) 4.0 H (1.0-3.0) % Baso % (Auto) 0.5 (0.0-1.0) % Add Manual Diff Yes PT (9.0-12.0) SEC INR (0.9-1.2) Sodium 128 L (136-145) mmol/L Potassium 2.1 L* (3.5-5.1) mmol/L Chloride 92 L (98-107) mmol/L Carbon Dioxide 23 (21-32) mmol/L Anion Gap 15.1 H (7-13) mEq/L BUN 7 (7-18) mg/dL Creatinine 0.77 (0.70-1.30) mg/dL Est Cr Clr Drug Dosing 103.30 mL/min Estimated GFR (MDRD) > 60 BUN/Creatinine Ratio 9.1 (No establ ref range) Glucose 142 H (74-99) mg/dL Lactic Acid (0.4-2.0) mmol/L Calcium 7.6 L (8.5-10.1) mg/dL Phosphorus 1.8 L (2.6-4.7) mg/dL Magnesium 2.1 (1.8-2.4) mg/dL Total Bilirubin 15.9 H (0.2-1.0) mg/dL AST 123 H (15-37) U/L ALT 39 (16-63) U/L Alkaline Phosphatase 325 H (46-116) U/L Ammonia (11-32) umol/L C-Reactive Protein 7.7 H (0.0-0.9) mg/dL Total Protein 7.3 (6.4-8.2) g/dL Albumin 1.7 L (3.4-5.0) g/dL Globulin 5.6 Albumin/Globulin Ratio 0.30 Amylase 41 (25-115) U/L Lipase 195 (73-393) U/L Ethyl Alcohol < 3 (0) mg/dL SARS-CoV-2 RNA (TOMMIE) Negative (NEGATIVE) 11/24/20 11/24/20 11/24/20 Range/Units 13:15 13:15 13:15 WBC (5.0-10.0) 10^3/uL RBC (4.6-6.2) 10^6/uL Hgb (14.0-18.0) g/dL Hct (40.0-54.0) % MCV (80-100) fL MCH (27.0-34.0) pg MCHC (33.0-35.0) g/dL Plt Count (150-450) 10^3/uL Neut % (Auto) (42.2-75.2) % Lymph % (Auto) (20.5-50.1) % [place] % (Auto) (2-8) % Eos % (Auto) (1.0-3.0) % Baso % (Auto) (0.0-1.0) % Add Manual Diff PT 18.1 H (9.0-12.0) SEC INR 1.9 H (0.9-1.2) Sodium (136-145) mmol/L Potassium (3.5-5.1) mmol/L Chloride (98-107) mmol/L Carbon Dioxide (21-32) mmol/L Anion Gap (7-13) mEq/L BUN (7-18) mg/dL Creatinine (0.70-1.30) mg/dL Est Cr Clr Drug Dosing mL/min Estimated GFR (MDRD) BUN/Creatinine Ratio (No establ ref range) Glucose (74-99) mg/dL Lactic Acid 2.3 H* (0.4-2.0) mmol/L Calcium (8.5-10.1) mg/dL Phosphorus (2.6-4.7) mg/dL Magnesium (1.8-2.4) mg/dL Total Bilirubin (0.2-1.0) mg/dL AST (15-37) U/L ALT (16-63) U/L Alkaline Phosphatase (46-116) U/L Ammonia 99 H (11-32) umol/L C-Reactive Protein (0.0-0.9) mg/dL Total Protein (6.4-8.2) g/dL Albumin (3.4-5.0) g/dL Globulin Albumin/Globulin Ratio Amylase (25-115) U/L Lipase (73-393) U/L Ethyl Alcohol (0) mg/dL SARS-CoV-2 RNA (TOMMIE) (NEGATIVE) Meds: Medications Generic Name Dose Route Start Last Admin Trade Name Freq PRN Reason Stop Dose Admin Sodium Chloride 1,000 mls @ 200 mls/hr 11/24/20 14:13 11/24/20 14:32 Normal Saline IV 11/24/20 19:12 200 mls/hr .BOLUS ONE Administration Potassium Chloride 20 meq/ 100 mls @ 50 mls/hr 11/24/20 14:14 11/24/20 14:32 Premix IV 11/24/20 16:13 50 mls/hr ONETIME ONE Administration Piperacillin Sod/Tazobactam 100 mls @ 200 mls/hr 11/24/20 14:49 Sod 3.375 gm/ Sodium Chloride IV 11/24/20 15:18 ONETIME ONE Discontinued Medications Generic Name Dose Route Start Last Admin Trade Name Freq PRN Reason Stop Dose Admin Lidocaine HCl 30 ml 11/24/20 14:25 11/24/20 14:32 Xylocaine-Mpf 1% INJECT 11/24/20 14:26 30 ml ONETIME ONE Administration - Radiology Interpretation Free Text/Narrative:: CHest xray: PROCEDURE INFORMATION: Exam: XR Chest Exam date and time: 11/24/2020 2:04 PM Age: 60 years old Clinical indication: Chest pain TECHNIQUE: Imaging protocol: XR of the chest Views: 1 view. COMPARISON: CR Chest 2V 06/09/2020 2:15 PM FINDINGS: Limitations: The bilateral lung apices were excluded from the field of view. The view of the chest is also moderately lordotic. Lungs: The lungs are normally expanded and clear. Pleural spaces: No pleural effusion or pneumothorax. Heart/Mediastinum: Normal heart and cardio-mediastinal silhouette. Vasculature: Normal pulmonary vessels and width of the vascular pedicle. Bones/joints: Intact and normally aligned. IMPRESSION: No acute disease as seen. Limitations as above due to patient positioning Thank you for allowing us to participate in the care of your patient. Dictated and Authenticated by: Jarrod Richardson MD 11/24/2020 2:22 PM Central Time ([place] & [place]) See rad report - Re-Assessments/Exams Free Text/Narrative Re-Assessment/Exam: 11/24/20 14:52 Discussed patient case with Dr. Marquez at [facility] who agreed to accept the patient for transfer. Departure - Departure Time of Disposition: 14:53 Disposition: DC/Tfer to Acute Hospital 02 Condition: Serious Clinical Impression: Hypokalemia, Chronic alcoholism, Alcoholic hepatic failure without coma Anemia Qualifiers: Anemia type: unspecified type Qualified Code(s): D64.9 - Anemia, unspecified Sepsis Qualifiers: Sepsis type: sepsis due to unspecified organism Sepsis acute organ dysfunction status: unspecified Qualified Code(s): A41.9 - Sepsis, unspecified organism - Discharge Information *PRESCRIPTION DRUG MONITORING PROGRAM REVIEWED*: No *COPY OF PRESCRIPTION DRUG MONITORING REPORT IN PATIENT ANTONIO: No Forms: ED Department Discharge, Interfacility Transfer [facility] Sepsis Event Note (ED) - Focused Exam Vital Signs: Vital Signs Temp Pulse Resp BP Pulse Ox 11/24/20 12:47 98.0 F 97 18 99/47 L 97 - My Orders Last 24 Hours: My Active Orders 11/24/20 12:57 EKG Documentation Completion [RC] STAT 11/24/20 12:58 Blood Culture x2 Reflex Set [OM.PC] Stat 11/24/20 12:59 DRUG SCREEN URINE BIORAD [URCHEM] Stat UA W/PANKAJ RFLX IF INDICATED [URIN] Stat 11/24/20 13:15 CBC WITH AUTO DIFF [HEME] Stat CULTURE BLOOD [BC] Stat MANUAL DIFFERENTIAL QA/NC [HEME] Stat 11/24/20 13:47 CULTURE BLOOD [BC] Stat 11/24/20 14:13 REFLEX LACTIC ACID YES OR NO [CHEM] Routine Sodium Chloride 0.9% [Normal Saline] 1,000 ml IV .BOLUS 11/24/20 14:14 Potassium Chloride [KCL in Water 20 MEQ/100 ML] 20 meq Premix Bag 1 bag IV ONETIME 11/24/20 14:49 Piperacillin/Tazobactam [Zosyn] 3.375 gm Sodium Chloride 0.9% [Normal Saline] 100 ml IV ONETIME - Assessment/Plan Last 24 Hours: My Active Orders 11/24/20 12:57 EKG Documentation Completion [RC] STAT 11/24/20 12:58 Blood Culture x2 Reflex Set [OM.PC] Stat 11/24/20 12:59 DRUG SCREEN URINE BIORAD [URCHEM] Stat UA W/PANKAJ RFLX IF INDICATED [URIN] Stat 11/24/20 13:15 CBC WITH AUTO DIFF [HEME] Stat CULTURE BLOOD [BC] Stat MANUAL DIFFERENTIAL QA/NC [HEME] Stat 11/24/20 13:47 CULTURE BLOOD [BC] Stat 11/24/20 14:13 REFLEX LACTIC ACID YES OR NO [CHEM] Routine Sodium Chloride 0.9% [Normal Saline] 1,000 ml IV .BOLUS 11/24/20 14:14 Potassium Chloride [KCL in Water 20 MEQ/100 ML] 20 meq Premix Bag 1 bag IV ONETIME 11/24/20 14:49 Piperacillin/Tazobactam [Zosyn] 3.375 gm Sodium Chloride 0.9% [Normal Saline] 100 ml IV ONETIME I have read and agree with the documentation that has been completed regarding this visit. By signing this record, I attest that the documentation was completed in my physical presence and is an accurate record of the encounter.
[2020-11-24] MEDS ORDERED: Piperacillin/Tazobactam 3.375 GM in Sodium Chloride 0.9% 100 ML IV ONE (14:49)
== END 2020-11-24 15:56 ==
LOC: DL.ED 12:34
DX: A41.9 Sepsis, unspecified organism (principal); R65.20 Severe sepsis without septic shock; K70.40 Alcoholic hepatic failure without coma; F10.20 Alcohol dependence, uncomplicated; E87.6 Hypokalemia; D64.9 Anemia, unspecified; I10 Essential (primary) hypertension; E66.9 Obesity, unspecified; Z68.25 Body mass index [BMI] 25.0-25.9, adult; Z91.018 Allergy to other foods; Z20.822 Contact with and (suspected) exposure to COVID-19
CPT/HCPCS: 36415; 71045; 80053; 80307; 82140; 82150; 83605; 83690; 83735; 84100; 85025; 85610; 86140; 87040; 87635; 93005; 96365; 96368; 99285; J2543; J3480; J7030; 99284; U0002

== ENCOUNTER 2020-12-09 11:48 | Emergency (ER) | payer MEDICAID ==
[2020-12-09 12:18] LABS: ANION GAP 16.1 mEq/L (7-13); CHLORIDE,CL 103 mmol/L (98-107); SODIUM,NA 138 mmol/L (136-145)
--- NOTE | 2020-12-09 12:36 | CR ---
PROCEDURE INFORMATION: Exam: XR Chest Exam date and time: 12/09/2020 12:15 PM Age: 60 years old Clinical indication: Chest pain TECHNIQUE: Imaging protocol: XR of the chest Views: 1 view. COMPARISON: CR Chest 1V Frontal 11/24/2020 2:04 PM and 06/09/2020 FINDINGS: Lungs: The lungs are normally expanded and clear. Pleural spaces: No pleural effusion or pneumothorax. Heart/Mediastinum: Normal heart and cardio-mediastinal silhouette. Vasculature: Normal pulmonary vessels and width of the vascular pedicle. Bones/joints: Intact and normally aligned. IMPRESSION: No acute disease or suspicious finding.
--- NOTE | 2020-12-09 13:57 | EDM.PDOC ---
Scribed by Maura Craft 12/09/20 [id number] for Leonarda Sharp NP ED HPI GENERAL MEDICAL PROBLEM - General Chief Complaint: Skin Complaint Stated Complaint: AMBULANCE Time Seen by Provider: 12/09/20 12:01 Source of Information: Reports: Patient, EMS, EMS Notes Reviewed, RN, RN Notes Reviewed History Limitations: Reports: No Limitations - History of Present Illness INITIAL COMMENTS - FREE TEXT/NARRATIVE: Patient is a 60-year-old male who presents to ER by [facility] with complaint of swelling to the feet and ankles. He states he was discharged from [facility] on November 27. Patient was transferred to [facility] with alcoholic cirrhosis. Patient states he has been taking meds as prescribed and has not had an alcoholic drink in "weeks". Patient appears jaundiced. Patient states main concern is not being able to get shoes on and unable to walk. Onset: Gradual Duration: Constant Location: Reports: Lower Extremity, Left, Lower Extremity, Right Quality: Reports: Ache Severity: Severe Improves with: Reports: None Worsens with: Reports: None Associated Symptoms: Reports: No Other Symptoms - Related Data Allergies Allergy/AdvReac Type Severity Reaction Status Date / Time tomato Allergy Rash Verified 12/09/20 12:16 Home Meds: Home Meds . [No Known Home Meds] 06/09/20 [History] Past Medical History HEENT History: Reports: Impaired Vision Cardiovascular History: Reports: Hypertension Respiratory History: Reports: None Gastrointestinal History: Reports: Chronic Constipation, Diverticulosis, Fatty Liver, Hepatitis, Jaundice, Other (See Below) Other Gastrointestinal History: states he has been constipated since fall Genitourinary History: Reports: None Musculoskeletal History: Reports: Back Pain, Chronic Neurological History: Reports: None Psychiatric History: Reports: Addiction Endocrine/Metabolic History: Reports: Obesity/BMI 30+ Hematologic History: Reports: None Immunologic History: Reports: Other (See Below) Other Immunologic History: Hepatits Oncologic (Cancer) History: Reports: None Dermatologic History: Reports: None - Infectious Disease History Infectious Disease History: Reports: Hepatitis C, Measles - Past Surgical History Head Surgeries/Procedures: Reports: None HEENT Surgical History: Reports: None Cardiovascular Surgical History: Reports: None Respiratory Surgical History: Reports: None GI Surgical History: Reports: Colonoscopy Male Surgical History: Reports: None Endocrine Surgical History: Reports: None Neurological Surgical History: Reports: None Musculoskeletal Surgical History: Reports: Shoulder Surgery Oncologic Surgical History: Reports: None Dermatological Surgical History: Reports: Other (See Below) Social & Family History - Family History Family Medical History: No Pertinent Family History - Caffeine Use Caffeine Use: Reports: Coffee Other Caffeine Use: A LITTLE BIT, ONCE IN A WHILE A CUP OF COFFEE - Living Situation & Occupation Living situation: Reports: Single, with Family (with son) Occupation: Unemployed ED ROS GENERAL - Review of Systems Review Of Systems: Comprehensive ROS is negative, except as noted in HPI. ED EXAM, GENERAL - Physical Exam Exam: See Below Exam Limited By: No Limitations General Appearance: No Apparent Distress, Other (jaundiced.) Eye Exam: Bilateral Eye: Other (scleral icterus) Ears: Normal External Exam, Normal Canal, Hearing Grossly Normal, Normal TMs Nose: Normal Inspection, Normal Mucosa, No Blood Throat/Mouth: Normal Inspection, Normal Lips, Normal Teeth, Normal Gums, Normal Oropharynx, Normal Voice, No Airway Compromise Head: Atraumatic, Normocephalic Neck: Normal Inspection, Supple, Non-Tender, Full Range of Motion Respiratory/Chest: Decreased Breath Sounds Cardiovascular: Normal Peripheral Pulses, Regular Rate, Rhythm, No Edema, No Gallop, No JVD, No Murmur, No Rub GI/Abdominal: Normal Bowel Sounds, Soft, Non-Tender, No Organomegaly, No Distention, No Abnormal Bruit, No Mass (Male) Exam: Deferred Rectal (Males) Exam: Deferred Back Exam: Normal Inspection, Full Range of Motion, NT Extremities: Normal Inspection, Normal Range of Motion, Non-Tender, Normal Capillary Refill, No Pedal Edema Neurological: Alert, Oriented, CN II-XII Intact, Normal Cognition, Normal Gait, Normal Reflexes, No Motor/Sensory Deficits, Other (vague) Psychiatric: Normal Affect, Normal Mood Skin Exam: Other (very very dry, scaly and jaundiced.) Lymphatic: No Adenopathy Course - Vital Signs Last Recorded V/S: Last Vital Signs Temp 98.3 F 12/09/20 12:12 Pulse 92 12/09/20 12:12 Resp 16 12/09/20 12:12 BP 110/45 L 12/09/20 12:12 Pulse Ox 100 12/09/20 12:12 - Orders/Labs/Meds Orders: Active Orders 24 hr Category Date Time Status EKG Documentation Completion [RC] STAT Care 12/09/20 11:45 Active UA W/PANKAJ RFLX IF INDICATED [URIN] Stat Lab 12/09/20 11:45 Ordered Labs: Laboratory Tests 12/09/20 12/09/20 12/09/20 Range/Units 11:54 11:54 11:54 WBC 16.1 H (5.0-10.0) 10^3/uL RBC 2.55 L (4.6-6.2) 10^6/uL Hgb 8.9 L D (14.0-18.0) g/dL Hct 24.4 L (40.0-54.0) % MCV 95.7 D (80-100) fL MCH 34.9 H (27.0-34.0) pg MCHC 36.5 H (33.0-35.0) g/dL Plt Count 184 (150-450) 10^3/uL Neut % (Auto) 72.4 (42.2-75.2) % Lymph % (Auto) 12.0 L (20.5-50.1) % [place] % (Auto) 9.7 H (2-8) % Eos % (Auto) 5.0 H (1.0-3.0) % Baso % (Auto) 0.9 (0.0-1.0) % PT 16.5 H (9.0-12.0) SEC INR 1.7 H (0.9-1.2) Sodium 138 D (136-145) mmol/L Potassium 3.1 L (3.5-5.1) mmol/L Chloride 103 (98-107) mmol/L Carbon Dioxide 22 (21-32) mmol/L Anion Gap 16.1 H (7-13) mEq/L BUN 4 L (7-18) mg/dL Creatinine 0.76 (0.70-1.30) mg/dL Est Cr Clr Drug Dosing TNP Estimated GFR (MDRD) > 60 BUN/Creatinine Ratio 5.3 (No establ ref range) Glucose 152 H (74-99) mg/dL Calcium 7.4 L (8.5-10.1) mg/dL Magnesium 1.7 L (1.8-2.4) mg/dL Total Bilirubin 10.5 H (0.2-1.0) mg/dL AST 65 H (15-37) U/L ALT 53 (16-63) U/L Alkaline Phosphatase 341 H (46-116) U/L B-Natriuretic Peptide 118 H (0-100) pg/ml Total Protein 6.8 (6.4-8.2) g/dL Albumin 1.8 L (3.4-5.0) g/dL Globulin 5.0 Albumin/Globulin Ratio 0.36 Ethyl Alcohol < 3 (0) mg/dL - Radiology Interpretation Free Text/Narrative:: Chest xray: PROCEDURE INFORMATION: Exam: XR Chest Exam date and time: 12/09/2020 12:15 PM Age: 60 years old Clinical indication: Chest pain TECHNIQUE: Imaging protocol: XR of the chest Views: 1 view. COMPARISON: CR Chest 1V Frontal 11/24/2020 2:04 PM and 06/09/2020 FINDINGS: Lungs: The lungs are normally expanded and clear. Pleural spaces: No pleural effusion or pneumothorax. Heart/Mediastinum: Normal heart and cardio-mediastinal silhouette. Vasculature: Normal pulmonary vessels and width of the vascular pedicle. Bones/joints: Intact and normally aligned. IMPRESSION: No acute disease or suspicious finding. Thank you for allowing us to participate in the care of your patient. Dictated and Authenticated by: Jarrod Richardson MD 12/09/2020 12:36 PM Central Time ([place] & [place]) See rad report - Re-Assessments/Exams Free Text/Narrative Re-Assessment/Exam: Discussed patient case with Dr. Deras who states the patient can be discharged home. Departure - Departure Time of Disposition: 13:04 Disposition: Home, Self-Care 01 Condition: Fair Clinical Impression: Alcoholic cirrhosis Qualifiers: Ascites presence: unspecified Qualified Code(s): K70.30 - Alcoholic cirrhosis of liver without ascites - Discharge Information *PRESCRIPTION DRUG MONITORING PROGRAM REVIEWED*: No *COPY OF PRESCRIPTION DRUG MONITORING REPORT IN PATIENT ANTONIO: No Instructions: Alcoholic Liver Disease, [id number] Forms: ED Department Discharge Additional Instructions: Increase Furosemide to 40mg once daily Increase Spironolactone to 100mg once daily Call the clinic tomorrow to make an appointment to be established with Agustin Duron NP Take all medications as prescribed Sepsis Event Note (ED) - Focused Exam Vital Signs: Vital Signs Temp Pulse Resp BP Pulse Ox 12/09/20 12:12 98.3 F 92 16 110/45 L 100 - My Orders Last 24 Hours: My Active Orders 12/09/20 11:45 EKG Documentation Completion [RC] STAT UA W/PANKAJ RFLX IF INDICATED [URIN] Stat - Assessment/Plan Last 24 Hours: My Active Orders 12/09/20 11:45 EKG Documentation Completion [RC] STAT UA W/PANKAJ RFLX IF INDICATED [URIN] Stat I have read and agree with the documentation that has been completed regarding this visit. By signing this record, I attest that the documentation was completed in my physical presence and is an accurate record of the encounter.
== END 2020-12-09 13:59 | disposition home or self-care (01) ==
LOC: DL.ED 11:48
DX: K70.30 Alcoholic cirrhosis of liver without ascites (principal); I10 Essential (primary) hypertension; E66.9 Obesity, unspecified; Z91.018 Allergy to other foods
CPT/HCPCS: 36415; 71045; 80053; 80307; 83735; 83880; 85025; 85610; 93005; 99284; 99284-25

== ENCOUNTER 2020-12-20 23:18 | Inpatient (IN) | payer MEDICAID ==
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
[2020-12-21 00:10] LABS: ANION GAP 14.7 mEq/L (7-13); CHLORIDE,CL 105 mmol/L (98-107); SODIUM,NA 138 mmol/L (136-145)
--- NOTE | 2020-12-21 00:20 | CR ---
PROCEDURE INFORMATION: Exam: XR Chest Exam date and time: 12/20/2020 11:56 PM Age: 60 years old Clinical indication: Other: Edema; Additional info: Swollen feet TECHNIQUE: Imaging protocol: XR of the chest Views: 1 view. COMPARISON: CR Chest 1V Frontal 12/09/2020 12:15 PM FINDINGS: Lungs: There is mild cardiomegaly with increase in pulmonary vascularity and interstitial markings. Pleural spaces: Unremarkable. No pleural effusion. No pneumothorax. Heart/Mediastinum: Unremarkable. No cardiomegaly. Bones/joints: Unremarkable. IMPRESSION: Mild CHF.
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
[2020-12-21] MEDS: Heparin Sodium 5,000 Units/ML Vial SUBCUT SCH ×3 (06:16→21:03)
[2020-12-21] MEDS: Furosemide 40 MG/4 ML VIAL IVPUSH SCH ×2 (06:17→14:17)
[2020-12-21] MEDS ORDERED: predniSONE 20 MG Tab PO SCH (08:00)
[2020-12-21] MEDS: Lactulose Soln 10 GM/15 ML 30 ML UD Cup PO SCH ×5 (09:26→20:51)
[2020-12-21] MEDS: Spironolactone 25 MG Tab PO SCH (11:22)
--- NOTE | 2020-12-21 13:39 | PCM.HP ---
H&P History of Present Illness - General Date of Service: 12/21/20 Admit Problem/Dx: Admission Diagnosis/Problem Admission Diagnosis/Problem CHF, Congestive heart failure Bilateral Leg Pain Score (Numeric/FACES): 4 - Related Data Allergies/Adverse Reactions: Allergies Allergy/AdvReac Type Severity Reaction Status Date / Time tomato Allergy Rash Verified 12/09/20 12:16 Home Medications: Home Meds Ferrous Sulfate 325 mg PO DAILY 12/21/20 [History] Furosemide [Lasix] 40 mg PO DAILY 12/21/20 [History] Pantoprazole [ProTONIX] 40 mg PO ACBREAKFAST 12/21/20 [History] Potassium Chloride [Klor-Con 10] 10 meq PO DAILY 12/21/20 [History] Spironolactone 100 mg PO DAILY 12/21/20 [History] Past Medical History HEENT History: Reports: Impaired Vision Cardiovascular History: Reports: Heart Failure, Hypertension Respiratory History: Reports: None Gastrointestinal History: Reports: Chronic Constipation, Diverticulosis, Fatty Liver, Hepatitis, Jaundice, Other (See Below) Other Gastrointestinal History: states he has been constipated since fall Genitourinary History: Reports: None Musculoskeletal History: Reports: Back Pain, Chronic Neurological History: Reports: None Psychiatric History: Reports: Addiction Endocrine/Metabolic History: Reports: Obesity/BMI 30+ Hematologic History: Reports: None Immunologic History: Reports: Other (See Below) Other Immunologic History: Hepatits Oncologic (Cancer) History: Reports: None Dermatologic History: Reports: None - Infectious Disease History Infectious Disease History: Reports: Hepatitis C, Measles - Past Surgical History Head Surgeries/Procedures: Reports: None HEENT Surgical History: Reports: None Cardiovascular Surgical History: Reports: None Respiratory Surgical History: Reports: None GI Surgical History: Reports: Colonoscopy Male Surgical History: Reports: None Endocrine Surgical History: Reports: None Neurological Surgical History: Reports: None Musculoskeletal Surgical History: Reports: Shoulder Surgery Oncologic Surgical History: Reports: None Dermatological Surgical History: Reports: Other (See Below) Social & Family History - Family History Family Medical History: No Pertinent Family History - Tobacco Use Tobacco Use Status *Q: Never Tobacco User Second Hand Smoke Exposure: No - Caffeine Use Caffeine Use: Reports: Coffee Other Caffeine Use: A LITTLE BIT, ONCE IN A WHILE A CUP OF COFFEE - Alcohol Use Days Per Week of Alcohol Use: 3 Number of Drinks Per Day: 6 Total Drinks Per Week: 18 Date of Last Drink: 12/19/20 Time of Last Drink: 21:00 - Recreational Drug Use Recreational Drug Use: No - Living Situation & Occupation Living situation: Reports: Single, with Family (with son) Occupation: Unemployed H&P Review of Systems - Review of Systems: Review Of Systems: See Below Exam - Vital Signs Vital Signs: Last Vital Signs Temp 98.5 F 12/21/20 12:00 Pulse 84 12/21/20 12:00 Resp 18 12/21/20 12:00 BP 98/51 L 12/21/20 12:00 Pulse Ox 100 12/21/20 12:00 Weight: 167 lb - Patient Data Lab Results Last 24 hrs: Laboratory Results - last 24 hr 12/20/20 12/20/20 12/20/20 Range/Units 23:44 23:44 23:44 WBC 14.0 H (5.0-10.0) 10^3/uL RBC 2.13 L (4.6-6.2) 10^6/uL Hgb 7.3 L D (14.0-18.0) g/dL Hct 20.8 L* (40.0-54.0) % MCV 97.7 (80-100) fL MCH 34.3 H (27.0-34.0) pg MCHC 35.1 H (33.0-35.0) g/dL Plt Count 249 (150-450) 10^3/uL Neut % (Auto) 63.2 (42.2-75.2) % Lymph % (Auto) 15.4 L (20.5-50.1) % [place] % (Auto) 15.4 H (2-8) % Eos % (Auto) 4.9 H (1.0-3.0) % Baso % (Auto) 1.1 H (0.0-1.0) % Add Manual Diff Yes Neutrophils % (Manual) 70 (42-75) % Band Neutrophils % 2 % Lymphocytes % (Manual) 14 L (20-50) % Monocytes % (Manual) 7 (2-8) % Eosinophils % (Manual) 7 H (1-3) % Platelet Estimate Adequate Target Cells 2+ moderate Stomatocytes 1+ slight PT 14.7 H (9.0-12.0) SEC INR 1.5 H (0.9-1.2) Sodium 138 (136-145) mmol/L Potassium 3.7 (3.5-5.1) mmol/L Chloride 105 (98-107) mmol/L Carbon Dioxide 22 (21-32) mmol/L Anion Gap 14.7 H (7-13) mEq/L BUN 6 L (7-18) mg/dL Creatinine 0.85 (0.70-1.30) mg/dL Est Cr Clr Drug Dosing 99.66 mL/min Estimated GFR (MDRD) > 60 BUN/Creatinine Ratio 7.1 (No establ ref range) Glucose 101 H (74-99) mg/dL Calcium 7.7 L (8.5-10.1) mg/dL Phosphorus 2.7 (2.6-4.7) mg/dL Magnesium 1.8 (1.8-2.4) mg/dL Total Bilirubin 7.2 H (0.2-1.0) mg/dL AST 101 H (15-37) U/L ALT 34 (16-63) U/L Alkaline Phosphatase 260 H (46-116) U/L B-Natriuretic Peptide 119 H (0-100) pg/ml Total Protein 6.3 L (6.4-8.2) g/dL Albumin 1.7 L (3.4-5.0) g/dL Globulin 4.6 Albumin/Globulin Ratio 0.37 SARS-CoV-2 RNA (TOMMIE) (NEGATIVE) 12/21/20 Range/Units 02:04 WBC (5.0-10.0) 10^3/uL RBC (4.6-6.2) 10^6/uL Hgb (14.0-18.0) g/dL Hct (40.0-54.0) % MCV (80-100) fL MCH (27.0-34.0) pg MCHC (33.0-35.0) g/dL Plt Count (150-450) 10^3/uL Neut % (Auto) (42.2-75.2) % Lymph % (Auto) (20.5-50.1) % [place] % (Auto) (2-8) % Eos % (Auto) (1.0-3.0) % Baso % (Auto) (0.0-1.0) % Add Manual Diff Neutrophils % (Manual) (42-75) % Band Neutrophils % % Lymphocytes % (Manual) (20-50) % Monocytes % (Manual) (2-8) % Eosinophils % (Manual) (1-3) % Platelet Estimate Target Cells Stomatocytes PT (9.0-12.0) SEC INR (0.9-1.2) Sodium (136-145) mmol/L Potassium (3.5-5.1) mmol/L Chloride (98-107) mmol/L Carbon Dioxide (21-32) mmol/L Anion Gap (7-13) mEq/L BUN (7-18) mg/dL Creatinine (0.70-1.30) mg/dL Est Cr Clr Drug Dosing mL/min Estimated GFR (MDRD) BUN/Creatinine Ratio (No establ ref range) Glucose (74-99) mg/dL Calcium (8.5-10.1) mg/dL Phosphorus (2.6-4.7) mg/dL Magnesium (1.8-2.4) mg/dL Total Bilirubin (0.2-1.0) mg/dL AST (15-37) U/L ALT (16-63) U/L Alkaline Phosphatase (46-116) U/L B-Natriuretic Peptide (0-100) pg/ml Total Protein (6.4-8.2) g/dL Albumin (3.4-5.0) g/dL Globulin Albumin/Globulin Ratio SARS-CoV-2 RNA (TOMMIE) Negative (NEGATIVE) Result Diagrams: 12/20/20 23:44 12/20/20 23:44 Orders Last 24hrs: Active Orders 24 hr Category Date Time Status Admission Status [Patient Status] [ADT] Routine ADT 12/21/20 01:32 Active Patient Status [ADT] Routine ADT 12/21/20 01:45 Active Oxygen Therapy [RC] PRN Care 12/21/20 01:45 Active Up With Assistance [RC] ASDIRECTED Care 12/21/20 01:45 Active VTE/DVT Education [RC] 08,20 Care 12/21/20 01:45 Active Vital Signs [RC] 04,08,12,16,20,00 Care 12/21/20 01:45 Active PT Evaluation and Treatment [CONS] Routine Cons 12/21/20 01:45 Active 2 Gram Sodium Diet [DIET] Diet 12/21/20 Breakfast Active Venous Doppler Lwr Ext Bi [US] Urgent Exams 12/21/20 11:00 Taken Ferrous Sulfate Med 12/21/20 18:00 Active 325 mg PO BIDMEALS Furosemide [Lasix] Med 12/21/20 06:00 Active 40 mg IVPUSH 0600,1400 Heparin Sodium Med 12/21/20 06:00 Active 5,000 units SUBCUT Q8HR Lactulose [Cephulac] Med 12/21/20 09:00 Active 20 gm PO QID Multivitamins,Therapeutic [Thera] Med 12/22/20 08:00 Active 1 each PO WITHBREAKFAST Pantoprazole [ProTONIX] Med 12/22/20 06:00 Active 40 mg PO ACBREAKFAST Rifaximin [Xifaxan] Med 12/21/20 21:00 Active 550 mg PO BID Spironolactone [Aldactone] Med 12/21/20 09:00 Active 100 mg PO DAILY Resuscitation Status Routine Resus Stat 12/21/20 01:45 Ordered Medication Orders Ferrous Sulfate (Ferrous Sulfate 325 Mg Tab) 325 mg PO [facility]MEALS [facility] Furosemide (Furosemide 40 Mg/4 Ml Vial) 40 mg IVPUSH 0600,1400 [facility] Last Admin: 12/21/20 06:17 Dose: 40 mg Documented by: JARRETT Heparin Sodium (Porcine) (Heparin Sodium 5,000 Units/Ml Vial) 5,000 units SUBCUT Q8HR [facility] Last Admin: 12/21/20 06:16 Dose: 5,000 units Documented by: JARRETT Lactulose (Lactulose Soln 10 Gm/15 Ml 30 Ml Ud Cup) 20 gm PO QID [facility] Last Admin: 12/21/20 09:26 Dose: 20 gm Documented by: TERRA Multivitamins (Multivitamins,Therapeutic Tab) 1 each PO WITHBREAKFAST [facility] Pantoprazole Sodium (Pantoprazole 40 Mg Tab.Cr) 40 mg PO ACBREAKFAST [facility] Rifaximin (Rifaximin 550 Mg Tab) 550 mg PO BID [facility] Spironolactone (Spironolactone 25 Mg Tab) 100 mg PO DAILY [facility] Last Admin: 12/21/20 11:22 Dose: 100 mg Documented by: MAYRA Assessment/Plan Comment:: #fluid overload due to decompensated alcoholic liver cirrhosis - unclear if he is truly compliant - will start lasix 40 IV bid and continue spironolactone - check LE dopplers #alcoholic hepatitis - Tbili and INR is improving - will have to find out tomorrow if he is still on prednisone or if he has begun to be tapered - it has been close to a month since his discharge now - dose 20 mg prednisone in am to prevent adrenal crisis #leukocytosis - no clinical correlation to any signs or symptoms of ongoing infection - likely related to prednisone use PPX - [facility] Full code
--- NOTE | 2020-12-21 15:45 | PCM.PN ---
- General Info Date of Service: 12/21/20 Admission Dx/Problem (Free Text): Improving LE edema. No other complaints. - Patient Data Vitals - Most Recent: Last Vital Signs Temp 98.5 F 12/21/20 12:00 Pulse 84 12/21/20 12:00 Resp 18 12/21/20 12:00 BP 98/51 L 12/21/20 12:00 Pulse Ox 100 12/21/20 12:00 Weight - Most Recent: 167 lb I&O - Last 24 Hours: Intake & Output 12/21/20 12/21/20 12/21/20 06:59 14:59 22:59 Intake Total 100 450 Balance 100 450 Lab Results Last 24 Hours: Laboratory Results - last 24 hr 12/20/20 12/20/20 12/20/20 Range/Units 23:44 23:44 23:44 WBC 14.0 H (5.0-10.0) 10^3/uL RBC 2.13 L (4.6-6.2) 10^6/uL Hgb 7.3 L D (14.0-18.0) g/dL Hct 20.8 L* (40.0-54.0) % MCV 97.7 (80-100) fL MCH 34.3 H (27.0-34.0) pg MCHC 35.1 H (33.0-35.0) g/dL Plt Count 249 (150-450) 10^3/uL Neut % (Auto) 63.2 (42.2-75.2) % Lymph % (Auto) 15.4 L (20.5-50.1) % [place] % (Auto) 15.4 H (2-8) % Eos % (Auto) 4.9 H (1.0-3.0) % Baso % (Auto) 1.1 H (0.0-1.0) % Add Manual Diff Yes Neutrophils % (Manual) 70 (42-75) % Band Neutrophils % 2 % Lymphocytes % (Manual) 14 L (20-50) % Monocytes % (Manual) 7 (2-8) % Eosinophils % (Manual) 7 H (1-3) % Platelet Estimate Adequate Target Cells 2+ moderate Stomatocytes 1+ slight PT 14.7 H (9.0-12.0) SEC INR 1.5 H (0.9-1.2) Sodium 138 (136-145) mmol/L Potassium 3.7 (3.5-5.1) mmol/L Chloride 105 (98-107) mmol/L Carbon Dioxide 22 (21-32) mmol/L Anion Gap 14.7 H (7-13) mEq/L BUN 6 L (7-18) mg/dL Creatinine 0.85 (0.70-1.30) mg/dL Est Cr Clr Drug Dosing 99.66 mL/min Estimated GFR (MDRD) > 60 BUN/Creatinine Ratio 7.1 (No establ ref range) Glucose 101 H (74-99) mg/dL Calcium 7.7 L (8.5-10.1) mg/dL Phosphorus 2.7 (2.6-4.7) mg/dL Magnesium 1.8 (1.8-2.4) mg/dL Total Bilirubin 7.2 H (0.2-1.0) mg/dL AST 101 H (15-37) U/L ALT 34 (16-63) U/L Alkaline Phosphatase 260 H (46-116) U/L B-Natriuretic Peptide 119 H (0-100) pg/ml Total Protein 6.3 L (6.4-8.2) g/dL Albumin 1.7 L (3.4-5.0) g/dL Globulin 4.6 Albumin/Globulin Ratio 0.37 SARS-CoV-2 RNA ([facility]OMMIE) (NEGATIVE) 12/21/20 Range/Units 02:04 WBC (5.0-10.0) 10^3/uL RBC (4.6-6.2) 10^6/uL Hgb (14.0-18.0) g/dL Hct (40.0-54.0) % MCV (80-100) fL MCH (27.0-34.0) pg MCHC (33.0-35.0) g/dL Plt Count (150-450) 10^3/uL Neut % (Auto) (42.2-75.2) % Lymph % (Auto) (20.5-50.1) % [place] % (Auto) (2-8) % Eos % (Auto) (1.0-3.0) % Baso % (Auto) (0.0-1.0) % Add Manual Diff Neutrophils % (Manual) (42-75) % Band Neutrophils % % Lymphocytes % (Manual) (20-50) % Monocytes % (Manual) (2-8) % Eosinophils % (Manual) (1-3) % Platelet Estimate Target Cells Stomatocytes PT (9.0-12.0) SEC INR (0.9-1.2) Sodium (136-145) mmol/L Potassium (3.5-5.1) mmol/L Chloride (98-107) mmol/L Carbon Dioxide (21-32) mmol/L Anion Gap (7-13) mEq/L BUN (7-18) mg/dL Creatinine (0.70-1.30) mg/dL Est Cr Clr Drug Dosing mL/min Estimated GFR (MDRD) BUN/Creatinine Ratio (No establ ref range) Glucose (74-99) mg/dL Calcium (8.5-10.1) mg/dL Phosphorus (2.6-4.7) mg/dL Magnesium (1.8-2.4) mg/dL Total Bilirubin (0.2-1.0) mg/dL AST (15-37) U/L ALT (16-63) U/L Alkaline Phosphatase (46-116) U/L B-Natriuretic Peptide (0-100) pg/ml Total Protein (6.4-8.2) g/dL Albumin (3.4-5.0) g/dL Globulin Albumin/Globulin Ratio SARS-CoV-2 RNA (TOMMIE) Negative (NEGATIVE) Med Orders - Current: Current Medications Ferrous Sulfate (Ferrous Sulfate 325 Mg Tab) [address] [facility] Furosemide (Furosemide 40 Mg/4 Ml Vial) 40 mg IVPUSH 0600,1400 [facility] Last Admin: 12/21/20 14:17 Dose: 40 mg Documented by: Heparin Sodium (Porcine) (Heparin Sodium 5,000 Units/Ml Vial) 5,[address] [facility] Last Admin: 12/21/20 14:17 Dose: 5,000 units Documented by: Lactulose (Lactulose Soln 10 Gm/15 Ml 30 Ml Ud Cup) [address] [facility] Last Admin: 12/21/20 14:17 Dose: 20 gm Documented by: Multivitamins (Multivitamins,Therapeutic Tab) 1 each PO WITHBREAKFAST [facility] Pantoprazole Sodium (Pantoprazole 40 Mg Tab.Cr) 40 mg PO ACBREAKFAST [facility] Rifaximin (Rifaximin 550 Mg Tab) [address] [facility] Spironolactone (Spironolactone 25 Mg Tab) [address] [facility] Last Admin: 12/21/20 11:22 Dose: 100 mg Documented by: Discontinued Medications Prednisone (Prednisone 20 Mg Tab) [address] [facility] Last Admin: 12/21/20 09:26 Dose: 20 mg Documented by: - Exam Quality Assessment: No: Supplemental Oxygen General: Alert, Oriented, Cooperative HEENT: Pupils Equal, Scleral Icterus Neck: Supple Lungs: Clear to Auscultation, Normal Respiratory Effort Cardiovascular: Regular Rate, Regular Rhythm, No Murmurs GI/Abdominal Exam: Normal Bowel Sounds, Soft, Non-Tender, No Distention Extremities: Other (1+ edema w/ wrinkling) Skin: Warm, Dry Neurological: No New Focal Deficit Psy/Mental Status: Alert, Normal Affect, Normal Mood - Patient Data Lab Results Last 24 hrs: Laboratory Results - last 24 hr 12/20/20 12/20/20 12/20/20 Range/Units 23:44 23:44 23:44 WBC 14.0 H (5.0-10.0) 10^3/uL RBC 2.13 L (4.6-6.2) 10^6/uL Hgb 7.3 L D (14.0-18.0) g/dL Hct 20.8 L* (40.0-54.0) % MCV 97.7 (80-100) fL MCH 34.3 H (27.0-34.0) pg MCHC 35.1 H (33.0-35.0) g/dL Plt Count 249 (150-450) 10^3/uL Neut % (Auto) 63.2 (42.2-75.2) % Lymph % (Auto) 15.4 L (20.5-50.1) % [place] % (Auto) 15.4 H (2-8) % Eos % (Auto) 4.9 H (1.0-3.0) % Baso % (Auto) 1.1 H (0.0-1.0) % Add Manual Diff Yes Neutrophils % (Manual) 70 (42-75) % Band Neutrophils % 2 % Lymphocytes % (Manual) 14 L (20-50) % Monocytes % (Manual) 7 (2-8) % Eosinophils % (Manual) 7 H (1-3) % Platelet Estimate Adequate Target Cells 2+ moderate Stomatocytes 1+ slight PT 14.7 H (9.0-12.0) SEC INR 1.5 H (0.9-1.2) Sodium 138 (136-145) mmol/L Potassium 3.7 (3.5-5.1) mmol/L Chloride 105 (98-107) mmol/L Carbon Dioxide 22 (21-32) mmol/L Anion Gap 14.7 H (7-13) mEq/L BUN 6 L (7-18) mg/dL Creatinine 0.85 (0.70-1.30) mg/dL Est Cr Clr Drug Dosing 99.66 mL/min Estimated GFR (MDRD) > 60 BUN/Creatinine Ratio 7.1 (No establ ref range) Glucose 101 H (74-99) mg/dL Calcium 7.7 L (8.5-10.1) mg/dL Phosphorus 2.7 (2.6-4.7) mg/dL Magnesium 1.8 (1.8-2.4) mg/dL Total Bilirubin 7.2 H (0.2-1.0) mg/dL AST 101 H (15-37) U/L ALT 34 (16-63) U/L Alkaline Phosphatase 260 H (46-116) U/L B-Natriuretic Peptide 119 H (0-100) pg/ml Total Protein 6.3 L (6.4-8.2) g/dL Albumin 1.7 L (3.4-5.0) g/dL Globulin 4.6 Albumin/Globulin Ratio 0.37 SARS-CoV-2 RNA ([facility]) (NEGATIVE) 12/21/20 Range/Units 02:04 WBC (5.0-10.0) 10^3/uL RBC (4.6-6.2) 10^6/uL Hgb (14.0-18.0) g/dL Hct (40.0-54.0) % MCV (80-100) fL MCH (27.0-34.0) pg MCHC (33.0-35.0) g/dL Plt Count (150-450) 10^3/uL Neut % (Auto) (42.2-75.2) % Lymph % (Auto) (20.5-50.1) % [place] % (Auto) (2-8) % Eos % (Auto) (1.0-3.0) % Baso % (Auto) (0.0-1.0) % Add Manual Diff Neutrophils % (Manual) (42-75) % Band Neutrophils % % Lymphocytes % (Manual) (20-50) % Monocytes % (Manual) (2-8) % Eosinophils % (Manual) (1-3) % Platelet Estimate Target Cells Stomatocytes PT (9.0-12.0) SEC INR (0.9-1.2) Sodium (136-145) mmol/L Potassium (3.5-5.1) mmol/L Chloride (98-107) mmol/L Carbon Dioxide (21-32) mmol/L Anion Gap (7-13) mEq/L BUN (7-18) mg/dL Creatinine (0.70-1.30) mg/dL Est Cr Clr Drug Dosing mL/min Estimated GFR (MDRD) BUN/Creatinine Ratio (No establ ref range) Glucose (74-99) mg/dL Calcium (8.5-10.1) mg/dL Phosphorus (2.6-4.7) mg/dL Magnesium (1.8-2.4) mg/dL Total Bilirubin (0.2-1.0) mg/dL AST (15-37) U/L ALT (16-63) U/L Alkaline Phosphatase (46-116) U/L B-Natriuretic Peptide (0-100) pg/ml Total Protein (6.4-8.2) g/dL Albumin (3.4-5.0) g/dL Globulin Albumin/Globulin Ratio SARS-CoV-2 RNA ([facility]OM[facility]) Negative (NEGATIVE) Result Diagrams: 12/20/20 23:44 12/20/20 23:44 Sepsis Event Note - Evaluation Sepsis Screening Result: No Definite Risk - Focused Exam Vital Signs: Vital Signs Temp Pulse Resp BP Pulse Ox 12/21/20 12:00 98.5 F 84 18 98/51 L 100 12/21/20 07:31 98.8 F 96 18 109/51 L 99 - Problem List Review Problem List Initiated/Reviewed/Updated: No - My Orders Last 24 Hours: My Active Orders 12/21/20 01:45 Patient Status [ADT] Routine Oxygen Therapy [RC] PRN Up With Assistance [RC] ASDIRECTED VTE/DVT Education [RC] , Vital Signs [RC] 04,08,12,16,20,00 PT Evaluation and Treatment [CONS] Routine Resuscitation Status Routine 12/21/20 06:00 Furosemide [Lasix] 40 mg IVPUSH 0600,1400 Heparin Sodium 5,000 units SUBCUT Q8HR 12/21/20 Breakfast 2 Gram Sodium Diet [DIET] 12/21/20 09:00 Lactulose [Cephulac] 20 gm PO QID Spironolactone [Aldactone] 100 mg PO DAILY 12/21/20 11:00 Venous Doppler Lwr Ext Bi [US] Urgent 12/21/20 18:00 Ferrous Sulfate 325 mg PO BIDMEALS 12/21/20 21:00 Rifaximin [Xifaxan] 550 mg PO BID 12/22/20 06:00 Pantoprazole [ProTONIX] 40 mg PO ACBREAKFAST 12/22/20 08:00 Multivitamins,Therapeutic [Thera] 1 each PO WITHBREAKFAST - Plan Plan:: #fluid overload due to decompensated alcoholic liver cirrhosis - dopplers negative - CM obtained collateral information >>> pt is in between living arrangements and nobody is helping him w/ his medications #alcoholic hepatitis - Tbili and INR is improving - turns out pt was d/c w/ only 7 days of prednisone - stop prednisone PPX - [facility] Full code
[2020-12-21] MEDS ORDERED: Hydrocortisone Sodium Succinate 250 MG/2 ML SDV IV SCH (18:00)
[2020-12-21] MEDS: Ferrous Sulfate 325 MG Tab PO SCH (18:05)
[2020-12-21] MEDS: Rifaximin 550 MG Tab PO SCH (20:49)
[2020-12-22] MEDS: Heparin Sodium 5,000 Units/ML Vial SUBCUT SCH ×3 (05:10→21:35)
[2020-12-22] MEDS: Furosemide 40 MG/4 ML VIAL IVPUSH SCH ×2 (05:11→13:45)
[2020-12-22] MEDS: Pantoprazole 40 MG Tab.CR PO SCH (05:15)
[2020-12-22 07:24] LABS: ANION GAP 14.4 mEq/L (7-13); CHLORIDE,CL 102 mmol/L (98-107); SODIUM,NA 138 mmol/L (136-145)
[2020-12-22] MEDS: Ferrous Sulfate 325 MG Tab PO SCH ×2 (08:42→18:20)
[2020-12-22] MEDS: Multivitamins,Therapeutic Tab PO SCH (08:42)
[2020-12-22] MEDS: Spironolactone 25 MG Tab PO SCH (08:42)
[2020-12-22] MEDS: Lactulose Soln 10 GM/15 ML 30 ML UD Cup PO SCH ×4 (08:43→20:05)
[2020-12-22] MEDS: Rifaximin 550 MG Tab PO SCH ×2 (08:44→20:05)
[2020-12-22] MEDS ORDERED: Potassium Chloride 10 MEQ Tab.ER PO ONE (08:56)
--- NOTE | 2020-12-22 09:54 | PCM.PN ---
- General Info Date of Service: 12/22/20 Admission Dx/Problem (Free Text): No complaints. Edema decreasing. - Patient Data Vitals - Most Recent: Last Vital Signs Temp 98.4 F 12/22/20 08:20 Pulse 89 12/22/20 08:20 Resp 20 12/22/20 08:20 BP 97/53 L 12/22/20 08:20 Pulse Ox 98 12/22/20 08:20 Weight - Most Recent: 170 lb 6.4 oz I&O - Last 24 Hours: Intake & Output 12/21/20 12/22/20 12/22/20 22:59 06:59 14:59 Intake Total 400 705 Balance 400 705 Lab Results Last 24 Hours: Laboratory Results - last 24 hr 12/22/20 Range/Units 06:15 Sodium 138 (136-145) mmol/L Potassium 3.4 L (3.5-5.1) mmol/L Chloride 102 (98-107) mmol/L Carbon Dioxide 25 (21-32) mmol/L Anion Gap 14.4 H (7-13) mEq/L BUN 9 (7-18) mg/dL Creatinine 0.68 L (0.70-1.30) mg/dL Est Cr Clr Drug Dosing 116.97 mL/min Estimated GFR (MDRD) > 60 Glucose 108 H (74-99) mg/dL Calcium 7.6 L (8.5-10.1) mg/dL Med Orders - Current: Current Medications Ferrous Sulfate (Ferrous Sulfate 325 Mg Tab) 325 mg PO BIDMEALS [facility] Last Admin: 12/22/20 08:42 Dose: 325 mg Documented by: Furosemide (Furosemide 40 Mg/4 Ml Vial) 40 mg IVPUSH 0600,1400 [facility] Last Admin: 12/22/20 05:11 Dose: 40 mg Documented by: Heparin Sodium (Porcine) (Heparin Sodium 5,000 Units/Ml Vial) 5,000 units SUBCUT Q8HR [facility] Last Admin: 12/22/20 05:10 Dose: 5,000 units Documented by: Lactulose (Lactulose Soln 10 Gm/15 Ml 30 Ml Ud Cup) 20 gm PO QID [facility] Last Admin: 12/22/20 08:43 Dose: 20 gm Documented by: Multivitamins (Multivitamins,Therapeutic Tab) 1 each PO WITHBREAKFAST [facility] Last Admin: 12/22/20 08:42 Dose: 1 each Documented by: Pantoprazole Sodium (Pantoprazole 40 Mg Tab.Cr) 40 mg PO ACBREAKFAST [facility] Last Admin: 12/22/20 05:15 Dose: 40 mg Documented by: Rifaximin (Rifaximin 550 Mg Tab) 550 mg PO BID [facility] Last Admin: 12/22/20 08:44 Dose: 550 mg Documented by: Spironolactone (Spironolactone 25 Mg Tab) 100 mg PO DAILY [facility] Last Admin: 12/22/20 08:42 Dose: 100 mg Documented by: Discontinued Medications Hydrocortisone Sodium Succinate (Hydrocortisone Sodium Succinate 250 Mg/2 Ml Sdv) 40 mg IV Q6H [facility] Potassium Chloride (Potassium Chloride 10 Meq Tab.Er) 40 meq PO ONETIME ONE Stop: 12/22/20 08:57 Last Admin: 12/22/20 09:19 Dose: 40 meq Documented by: Prednisone (Prednisone 20 Mg Tab) 20 mg PO WITHBREAKFAST [facility] Last Admin: 12/21/20 09:26 Dose: 20 mg Documented by: - Exam Quality Assessment: No: Supplemental Oxygen General: Alert, Oriented, Cooperative HEENT: Pupils Equal, Pupils Reactive, Scleral Icterus Neck: Supple Lungs: Clear to Auscultation, Normal Respiratory Effort Cardiovascular: Regular Rate, Regular Rhythm, No Murmurs GI/Abdominal Exam: Normal Bowel Sounds, Soft, Non-Tender, No Distention Back Exam: Normal Inspection Extremities: Other (1+ edema) Neurological: No New Focal Deficit Psy/Mental Status: Alert, Normal Affect, Normal Mood - Patient Data Lab Results Last 24 hrs: Laboratory Results - last 24 hr 12/22/20 Range/Units 06:15 Sodium 138 (136-145) mmol/L Potassium 3.4 L (3.5-5.1) mmol/L Chloride 102 (98-107) mmol/L Carbon Dioxide 25 (21-32) mmol/L Anion Gap 14.4 H (7-13) mEq/L BUN 9 (7-18) mg/dL Creatinine 0.68 L (0.70-1.30) mg/dL Est Cr Clr Drug Dosing 116.97 mL/min Estimated GFR (MDRD) > 60 Glucose 108 H (74-99) mg/dL Calcium 7.6 L (8.5-10.1) mg/dL Result Diagrams: 12/20/20 23:44 12/22/20 06:15 Sepsis Event Note - Evaluation Sepsis Screening Result: No Definite Risk - Focused Exam Vital Signs: Vital Signs Temp Pulse Resp BP BP Pulse Ox 12/22/20 08:20 98.4 F 89 20 97/53 L 98 12/22/20 04:00 98.4 F 96 18 100/60 98 12/22/20 00:00 99.0 F 97 20 94/42 L 98 - Problem List Review Problem List Initiated/Reviewed/Updated: No - My Orders Last 24 Hours: My Active Orders 12/21/20 09:00 Lactulose [Cephulac] 20 gm PO QID Spironolactone [Aldactone] 100 mg PO DAILY 12/21/20 11:00 Venous Doppler Lwr Ext Bi [US] Urgent 12/21/20 18:00 Ferrous Sulfate 325 mg PO BIDMEALS 12/21/20 21:00 Rifaximin [Xifaxan] 550 mg PO BID 12/22/20 06:00 Pantoprazole [ProTONIX] 40 mg PO ACBREAKFAST 12/22/20 08:00 Multivitamins,Therapeutic [Thera] 1 each PO WITHBREAKFAST - Plan Plan:: #fluid overload due to decompensated alcoholic liver cirrhosis - dopplers negative - CM obtained collateral information >>> pt is in between living arrangements and nobody is helping him w/ his medications - c/w IV lasix #alcoholic hepatitis - Tbili and INR is improving - turns out pt was d/c w/ only 7 days of prednisone - stop prednisone PPX - SQH Full code
[2020-12-22] MEDS: Nicotine 7 MG/24 Hr Patch TRDERM SCH (20:04)
[2020-12-23] MEDS: Heparin Sodium 5,000 Units/ML Vial SUBCUT SCH ×3 (05:20→21:14)
[2020-12-23] MEDS: Furosemide 40 MG/4 ML VIAL IVPUSH SCH ×2 (05:21→14:06)
[2020-12-23] MEDS: Pantoprazole 40 MG Tab.CR PO SCH (05:21)
[2020-12-23] MEDS: Nicotine 7 MG/24 Hr Patch TRDERM SCH ×2 (05:30→21:14)
[2020-12-23 06:56] LABS: ANION GAP 13.6 mEq/L (7-13); CHLORIDE,CL 102 mmol/L (98-107); SODIUM,NA 139 mmol/L (136-145)
[2020-12-23] MEDS: Spironolactone 25 MG Tab PO SCH (09:33)
[2020-12-23] MEDS: Multivitamins,Therapeutic Tab PO SCH (09:34)
[2020-12-23] MEDS: Rifaximin 550 MG Tab PO SCH ×2 (09:34→21:14)
[2020-12-23] MEDS: Ferrous Sulfate 325 MG Tab PO SCH ×2 (09:34→18:07)
[2020-12-23] MEDS: Lactulose Soln 10 GM/15 ML 30 ML UD Cup PO SCH ×6 (09:35→21:14)
--- NOTE | 2020-12-23 17:33 | PCM.PN ---
- General Info Date of Service: 12/23/20 Admission Dx/Problem (Free Text): c/o feeling weak and tired. LE improved - just feet are swollen now. - Patient Data Vitals - Most Recent: Last Vital Signs Temp 98.8 F 12/23/20 16:30 Pulse 80 12/23/20 16:30 Resp 20 12/23/20 16:30 BP 102/62 12/23/20 16:30 Pulse Ox 100 12/23/20 16:30 Weight - Most Recent: 151 lb 3.2 oz I&O - Last 24 Hours: Intake & Output 12/23/20 12/23/20 12/23/20 06:59 14:59 22:59 Intake Total 1200 1170 Balance 1200 1170 Lab Results Last 24 Hours: Laboratory Results - last 24 hr 12/23/20 Range/Units 06:18 Sodium 139 (136-145) mmol/L Potassium 3.6 (3.5-5.1) mmol/L Chloride 102 (98-107) mmol/L Carbon Dioxide 27 (21-32) mmol/L Anion Gap 13.6 H (7-13) mEq/L BUN 7 (7-18) mg/dL Creatinine 0.83 (0.70-1.30) mg/dL Est Cr Clr Drug Dosing 92.96 mL/min Estimated GFR (MDRD) > 60 Glucose 87 (74-99) mg/dL Calcium 8.0 L (8.5-10.1) mg/dL Med Orders - Current: Current Medications Ferrous Sulfate (Ferrous Sulfate 325 Mg Tab) 325 mg PO BIDMEALS [facility] Last Admin: 12/23/20 09:34 Dose: 325 mg Documented by: Furosemide (Furosemide 40 Mg/4 Ml Vial) 40 mg IVPUSH 0600,1400 [facility] Last Admin: 12/23/20 14:06 Dose: 40 mg Documented by: Heparin Sodium (Porcine) (Heparin Sodium 5,000 Units/Ml Vial) 5,000 units SUBCUT Q8HR [facility] Last Admin: 12/23/20 14:06 Dose: 5,000 units Documented by: Lactulose (Lactulose Soln 10 Gm/15 Ml 30 Ml Ud Cup) 20 gm PO QID [facility] Last Admin: 12/23/20 17:14 Dose: Not Given Documented by: Miscellaneous Information ( Remove Nicotine Patch) 1 ea TRDERM DAILY [facility] Last Admin: 12/23/20 09:35 Dose: Not Given Documented by: Multivitamins (Multivitamins,Therapeutic Tab) 1 each PO WITHBREAKFAST [facility] Last Admin: 12/23/20 09:34 Dose: 1 each Documented by: Nicotine (Nicotine 7 Mg/24 Hr Patch) 7 mg TRDERM BEDTIME [facility] Last Admin: 12/23/20 05:30 Dose: 7 mg Documented by: Pantoprazole Sodium (Pantoprazole 40 Mg Tab.Cr) 40 mg PO ACBREAKFAST [facility] Last Admin: 12/23/20 05:21 Dose: 40 mg Documented by: Rifaximin (Rifaximin 550 Mg Tab) 550 mg PO BID [facility] Last Admin: 12/23/20 09:34 Dose: 550 mg Documented by: Spironolactone (Spironolactone 25 Mg Tab) 100 mg PO DAILY [facility] Last Admin: 12/23/20 09:33 Dose: 100 mg Documented by: Discontinued Medications Hydrocortisone Sodium Succinate (Hydrocortisone Sodium Succinate 250 Mg/2 Ml Sdv) 40 mg IV Q6H [facility] Potassium Chloride (Potassium Chloride 10 Meq Tab.Er) 40 meq PO ONETIME ONE Stop: 12/22/20 08:57 Last Admin: 12/22/20 09:19 Dose: 40 meq Documented by: Prednisone (Prednisone 20 Mg Tab) 20 mg PO WITHBREAKFAST [facility] Last Admin: 12/21/20 09:26 Dose: 20 mg Documented by: - Exam Quality Assessment: No: Supplemental Oxygen General: Alert, Oriented, Cooperative HEENT: Pupils Equal, Scleral Icterus Neck: Supple Lungs: Clear to Auscultation, Normal Respiratory Effort Cardiovascular: Regular Rate, Regular Rhythm, No Murmurs GI/Abdominal Exam: Normal Bowel Sounds, Soft, Non-Tender, No Distention Back Exam: Normal Inspection Extremities: Other (2+ pitting in feet, no edema above ankles) Skin: Warm, Dry Neurological: No New Focal Deficit Psy/Mental Status: Alert, Normal Affect, Normal Mood - Patient Data Lab Results Last 24 hrs: Laboratory Results - last 24 hr 12/23/20 Range/Units 06:18 Sodium 139 (136-145) mmol/L Potassium 3.6 (3.5-5.1) mmol/L Chloride 102 (98-107) mmol/L Carbon Dioxide 27 (21-32) mmol/L Anion Gap 13.6 H (7-13) mEq/L BUN 7 (7-18) mg/dL Creatinine 0.83 (0.70-1.30) mg/dL Est Cr Clr Drug Dosing 92.96 mL/min Estimated GFR (MDRD) > 60 Glucose 87 (74-99) mg/dL Calcium 8.0 L (8.5-10.1) mg/dL Result Diagrams: 12/20/20 23:44 12/23/20 06:18 Sepsis Event Note - Evaluation Sepsis Screening Result: No Definite Risk - Focused Exam Vital Signs: Vital Signs Temp Pulse Resp BP BP Pulse Ox 12/23/20 16:30 98.8 F 80 20 102/62 100 12/23/20 12:00 99.0 F 98 16 98/51 L 97 12/23/20 07:38 98.6 F 83 18 97/60 99 12/23/20 05:54 108/66 - Problem List Review Problem List Initiated/Reviewed/Updated: No - My Orders Last 24 Hours: My Active Orders 12/22/20 21:00 Nicotine [Habitrol] 7 mg TRDERM BEDTIME 12/23/20 09:00 Remove Patch 1 ea TRDERM DAILY - Plan Plan:: #fluid overload due to decompensated alcoholic liver cirrhosis - dopplers negative - CM obtained collateral information >>> pt is in between living arrangements and nobody is helping him w/ his medications - c/w IV lasix #alcoholic hepatitis - Tbili and INR is improving - turns out pt was d/c w/ only 7 days of prednisone - stop prednisone PPX - SQ[facility] Full code
[2020-12-24] MEDS: Furosemide 40 MG/4 ML VIAL IVPUSH SCH (05:16)
[2020-12-24] MEDS: Heparin Sodium 5,000 Units/ML Vial SUBCUT SCH (05:16)
[2020-12-24] MEDS: Pantoprazole 40 MG Tab.CR PO SCH (05:16)
[2020-12-24] MEDS: Spironolactone 25 MG Tab PO SCH (08:30)
[2020-12-24] MEDS: Multivitamins,Therapeutic Tab PO SCH (08:31)
[2020-12-24] MEDS: Ferrous Sulfate 325 MG Tab PO SCH (08:31)
[2020-12-24] MEDS: Rifaximin 550 MG Tab PO SCH (08:31)
[2020-12-24] MEDS: Lactulose Soln 10 GM/15 ML 30 ML UD Cup PO SCH ×2 (08:31→12:20)
--- NOTE | 2020-12-24 09:37 | US ---
PROCEDURE INFORMATION: Exam: US Duplex Lower Extremity Veins, Bilateral Exam date and time: 12/21/2020 11:36 AM Age: 60 years old Clinical indication: Swelling (edema) of limb; Lower extremity, bilateral; Additional info: B/l swelling - R/O dvt TECHNIQUE: Imaging protocol: Real-time duplex ultrasound of the extremities with 2-D murillo scale, color Doppler flow and spectral waveform analysis with image documentation. Complete exam focused on the bilateral lower extremity veins. COMPARISON: No relevant prior studies available. FINDINGS: Right deep veins: Unremarkable. The common femoral, femoral, proximal profunda femoral and popliteal veins are patent without thrombus. Normal Doppler waveforms. Normal compressibility and/or augmentation response. Right superficial veins: Saphenofemoral junction is patent without thrombus. Left deep veins: Unremarkable. The common femoral, femoral, proximal profunda femoral and popliteal veins are patent without thrombus. Normal Doppler waveforms. Normal compressibility and/or augmentation response. Left superficial veins: Saphenofemoral junction is patent without thrombus. Soft tissues: Few mildly prominent lymph nodes in the right groin. IMPRESSION: No evidence of deep vein thrombosis in bilateral lower extremities.
--- NOTE | 2020-12-24 11:17 | PCM.DCSUM1 ---
Discharge Summary - Hospital Course Free Text/Narrative:: pt is 60 y/o man with h/o alcoholic liver cirrhosis who reports quieting alcohol about 2 months ago. Pt presented to the ER with worsening lower ext edema. Pt was admitted to optimize his diuretic therapy, Pt was imitated on IV Lasix and his lower ext. edema markedly improved. His LFTS remained abn as his baseline. The report of his recent liver US From Nov 25 2020 was obtained and showed no focal lesions. He was advised to comply with his diuretics at home and to continue to abstain of alcohol. He already has a GI appointment this week. - Discharge Data Discharge Date: 12/24/20 Discharge Disposition: Home, W Home Health Agency 06 Condition: Good - Referral to Home Health Date of Face to Face Encounter: 12/24/20 Reason for Homebound Status: needs assistance when to leave home Primary Care Physician: PCP None Skilled Need: meedication mangment and medications set upp, education on disease process. and assessement of fluid overload - Discharge Diagnosis/Problem(s) (1) Alcoholic cirrhosis SNOMED Code(s): 084431162 ICD Code: K70.30 - ALCOHOLIC CIRRHOSIS OF LIVER WITHOUT ASCITES Status: Chronic Current Visit: Yes Qualifiers: Ascites presence: unspecified Qualified Code(s): K70.30 - Alcoholic cirrhosis of liver without ascites (2) Lower extremity edema SNOMED Code(s): 510007374 ICD Code: R60.0 - LOCALIZED EDEMA Status: Chronic Current Visit: Yes (3) Anemia SNOMED Code(s): 155513679 ICD Code: D64.9 - ANEMIA, UNSPECIFIED Status: Chronic Priority: Medium Current Visit: No Qualifiers: Anemia type: unspecified type Qualified Code(s): D64.9 - Anemia, unspecified - Patient Summary/Data Consults: Consultations 12/21/20 01:45 PT Evaluation and Treatment [CONS] Routine - Patient Instructions Diet: Low Sodium, No Alcoholic Beverages Notify Provider of: Fever, Increased Pain, Swelling and Redness, Nausea and/or Vomiting Other/Special Instructions: weight gain and leg swelling - Discharge Plan *PRESCRIPTION DRUG MONITORING PROGRAM REVIEWED*: Not Applicable *COPY OF PRESCRIPTION DRUG MONITORING REPORT IN PATIENT ANTONIO: Not Applicable Prescriptions/Med Rec: Lactulose [Cephulac] 20 gm PO QID 30 Days #120 cup Nicotine [Habitrol] 7 mg TRDERM BEDTIME 30 Days #30 patch Multivitamins,Therapeutic [Thera] 1 each PO WITHBREAKFAST 30 Days #30 tablet Rifaximin [Xifaxan] 550 mg PO BID 30 Days #60 tablet Tobacco Cessation Medication: Prescription Given Home Medications: Home Meds Ferrous Sulfate 325 mg PO DAILY 12/21/20 [History] Furosemide [Lasix] 40 mg PO DAILY 12/21/20 [History] Pantoprazole [ProTONIX] 40 mg PO ACBREAKFAST 12/21/20 [History] Potassium Chloride [Klor-Con 10] 10 meq PO DAILY 12/21/20 [History] Spironolactone 100 mg PO DAILY 12/21/20 [History] Ferrous Sulfate 325 mg PO BIDMEALS tablet 12/24/20 [Rx] Lactulose [Cephulac] 20 gm PO QID 30 Days #120 cup 12/24/20 [Rx] Multivitamins,Therapeutic [Thera] 1 each PO WITHBREAKFAST 30 Days #30 tablet 12/24/20 [Rx] Nicotine [Habitrol] 7 mg TRDERM BEDTIME 30 Days #30 patch 12/24/20 [Rx] Pantoprazole [ProTONIX] 40 mg PO ACBREAKFAST #0 tab.cr 12/24/20 [Rx] Rifaximin [Xifaxan] 550 mg PO BID 30 Days #60 tablet 12/24/20 [Rx] Spironolactone [Aldactone] 100 mg PO DAILY tablet 12/24/20 [Rx] Oxygen Therapy Mode: Room Air Referrals: Agustin Duron NP [Physician] - - Discharge Summary/Plan Comment DC Time >30 min.: Yes - General Info Date of Service: 12/24/20 Admission Dx/Problem (Free Text: c/o feeling weak and tired. LE improved - just feet are swollen now. Functional Status: Reports: Ambulating - Review of Systems General: Denies: Fever HEENT: Denies: Headaches Pulmonary: Denies: Shortness of Breath Cardiovascular: Denies: Chest Pain Gastrointestinal: Denies: Abdominal Pain, Constipation, Decreased Appetite, Hematochezia, Melena Genitourinary: Denies: Dysuria Skin: Reports: Jaundice Neurological: Denies: Confusion (Lower ext edema is much better) Psychiatric: Denies: Confusion - Patient Data Vitals - Most Recent: Last Vital Signs Temp 98.1 F 12/24/20 08:29 Pulse 99 12/24/20 08:29 Resp 18 12/24/20 08:29 BP 94/44 L 12/24/20 08:29 Pulse Ox 98 12/24/20 08:29 Weight - Most Recent: 146 lb 8 oz I&O - Last 24 hours: Intake & Output 12/23/20 12/24/20 12/24/20 22:59 06:59 14:59 Intake Total 610 Balance 610 Lab Results - Last 24 hrs: Laboratory Results - last 24 hr 12/24/20 Range/Units 10:25 WBC 15.3 H (5.0-10.0) 10^3/uL RBC 2.50 L (4.6-6.2) 10^6/uL Hgb 8.6 L (14.0-18.0) g/dL Hct 24.4 L (40.0-54.0) % MCV 97.6 (80-100) fL MCH 34.4 H (27.0-34.0) pg MCHC 35.2 H (33.0-35.0) g/dL Plt Count 257 (150-450) 10^3/uL Neut % (Auto) 60.3 (42.2-75.2) % Lymph % (Auto) 19.2 L (20.5-50.1) % [place] % (Auto) 13.0 H (2-8) % Eos % (Auto) 6.3 H (1.0-3.0) % Baso % (Auto) 1.2 H (0.0-1.0) % Add Manual Diff Med Orders - Current: Current Medications Ferrous Sulfate (Ferrous Sulfate 325 Mg Tab) 325 mg PO BIDMEALS [facility] Last Admin: 12/24/20 08:31 Dose: 325 mg Documented by: Furosemide (Furosemide 40 Mg/4 Ml Vial) 40 mg IVPUSH 0600,1400 [facility] Last Admin: 12/24/20 05:16 Dose: 40 mg Documented by: Heparin Sodium (Porcine) (Heparin Sodium 5,000 Units/Ml Vial) 5,000 units SUBCUT Q8HR [facility] Last Admin: 12/24/20 05:16 Dose: 5,000 units Documented by: Lactulose (Lactulose Soln 10 Gm/15 Ml 30 Ml Ud Cup) 20 gm PO QID [facility] Last Admin: 12/24/20 08:31 Dose: Not Given Documented by: Miscellaneous Information ( Remove Nicotine Patch) 1 ea TRDERM DAILY [facility] Last Admin: 12/24/20 08:31 Dose: Not Given Documented by: Multivitamins (Multivitamins,Therapeutic Tab) 1 each PO WITHBREAKFAST [facility] Last Admin: 12/24/20 08:31 Dose: 1 each Documented by: Nicotine (Nicotine 7 Mg/24 Hr Patch) 7 mg TRDERM BEDTIME [facility] Last Admin: 12/23/20 21:14 Dose: Not Given Documented by: Pantoprazole Sodium (Pantoprazole 40 Mg Tab.Cr) 40 mg PO ACBREAKFAST [facility] Last Admin: 12/24/20 05:16 Dose: 40 mg Documented by: Rifaximin (Rifaximin 550 Mg Tab) 550 mg PO BID [facility] Last Admin: 12/24/20 08:31 Dose: 550 mg Documented by: Spironolactone (Spironolactone 25 Mg Tab) 100 mg PO DAILY [facility] Last Admin: 12/24/20 08:30 Dose: 100 mg Documented by: Discontinued Medications Hydrocortisone Sodium Succinate (Hydrocortisone Sodium Succinate 250 Mg/2 Ml Sdv) 40 mg IV Q6H [facility] Potassium Chloride (Potassium Chloride 10 Meq Tab.Er) 40 meq PO ONETIME ONE Stop: 12/22/20 08:57 Last Admin: 12/22/20 09:19 Dose: 40 meq Documented by: Prednisone (Prednisone 20 Mg Tab) 20 mg PO WITHBREAKFAST [facility] Last Admin: 12/21/20 09:26 Dose: 20 mg Documented by: - Exam General: Reports: Alert, Oriented, Cooperative, No Acute Distress HEENT: Reports: Scleral Icterus Neck: Reports: Supple Lungs: Reports: Clear to Auscultation Cardiovascular: Reports: Regular Rate, Regular Rhythm GI/Abdominal Exam: Soft, Non-Tender, No Distention Rectal (Males) Exam: Deferred Extremities: Pedal Edema Skin: Reports: Intact Neurological: Reports: No New Focal Deficit Psy/Mental Status: Reports: Normal Affect, Normal Mood (lower extt edema has markedly improved)
== END 2020-12-24 13:18 | disposition home health service (06) | DRG 433 ==
LOC: DL.ED 23:18 → DL.MS 12-21 01:32 → EEVIPCON 12-21 01:32
PROVIDERS: ADMIT Internal Medicine; ATTEND Internal Medicine
DX: K70.30 Alcoholic cirrhosis of liver without ascites (principal); F10.288 Alcohol dependence with other alcohol-induced disorder; D64.9 Anemia, unspecified; H54.7 Unspecified visual loss; K59.09 Other constipation; K57.90 Diverticulosis of intestine, part unspecified, without perforation or abscess without bleeding; M54.9 Dorsalgia, unspecified; G89.29 Other chronic pain; E66.9 Obesity, unspecified; K76.0 Fatty (change of) liver, not elsewhere classified; K70.10 Alcoholic hepatitis without ascites; Z20.822 Contact with and (suspected) exposure to COVID-19; D72.829 Elevated white blood cell count, unspecified; T38.0X5A Adverse effect of glucocorticoids and synthetic analogues, initial encounter; Z91.018 Allergy to other foods; Z28.82 Immunization not carried out because of caregiver refusal; Z68.21 Body mass index [BMI] 21.0-21.9, adult
CPT/HCPCS: 36415; 71045; 80048; 80053; 83735; 83880; 84100; 85025; 85610; 93970; 97161-GP; 99284; 99285-25; A9270-GY; J1644; J1940; J7512; U0002